=== PATIENT | female | born 1950 | race Caucasian/White ===

== ENCOUNTER → 2016-07-05 | Day surgery (SDC) | payer MEDICARE, MEDICAID ==
[~2016-07-05] VITALS: Ht 154.9 cm; Wt 57.2 kg
[~2016-07-05] MED LIST: DRON10CA MT; FENTANYL CITRATE/PF 50MCG/ML 2ML VIAL IV ONE; FENTANYL CITRATE/PF 50MCG/ML 2ML VIAL ONE; HYDROCODONE/ACETAMINOPHEN 5/325MG TABLET PO PRN; ITRACONAZOLE; LEVO25TA7 PO; LIDOCAINE HCL 1% 20ML VIAL (Pyxis) INJ ONE; OMEP20CA10 PO; PROG1 PO; SODIUM BICARBONATE 4.2% 5 MEQ/10 ML DISP.SYRIN IV ONE; ZINC SULFATE PO; nitrostat SL; tums
[2016-07-05 09:15] VITALS: BP 148/68
[2016-07-05 09:29] VITALS: BP 148/68
[2016-07-05 09:30] VITALS: BP 134/83
[2016-07-05 09:45] VITALS: BP 133/81
[2016-07-05 09:50] VITALS: BP_SYST 133; BP_SYST 148; BP_DIAS 68; BP_DIAS 81
[2016-07-05 10:00] VITALS: BP 141/80
[2016-07-05 13:28] LABS: HEMATOCRIT 42.7 % (36.0-48.0)
== END | disposition home or self-care (01) ==
LOC: OR 08:37
PROVIDERS: ATTEND Internal Medicine Nephrology
DX: N18.6 End stage renal disease (principal); R80.9 Proteinuria, unspecified; I12.0 Hypertensive chronic kidney disease with stage 5 chronic kidney disease or end stage renal disease; E11.22 Type 2 diabetes mellitus with diabetic chronic kidney disease; Z94.0 Kidney transplant status; M81.0 Age-related osteoporosis without current pathological fracture; E03.9 Hypothyroidism, unspecified; M32.9 Systemic lupus erythematosus, unspecified; E78.00 Pure hypercholesterolemia, unspecified; Z84.89 Family history of other specified conditions; Z82.49 Family history of ischemic heart disease and other diseases of the circulatory system
CPT/HCPCS: 36415; 50200; 76942; 85014; 85018; 88305; 88346; 88348; J3010; J3490

== ENCOUNTER 2018-04-27 10:37 | Inpatient (IN) | payer MEDICARE, MEDICAID ==
[~2018-04-27] VITALS: Ht 165.1 cm; Wt 64.0 kg
[~2018-04-27 10:37] MED LIST changes: -FENTANYL CITRATE/PF 50MCG/ML 2ML VIAL IV ONE; -FENTANYL CITRATE/PF 50MCG/ML 2ML VIAL ONE; -HYDROCODONE/ACETAMINOPHEN 5/325MG TABLET PO PRN; -LIDOCAINE HCL 1% 20ML VIAL (Pyxis) INJ ONE; -OMEP20CA10 PO; -SODIUM BICARBONATE 4.2% 5 MEQ/10 ML DISP.SYRIN IV ONE; -nitrostat SL
[2018-04-27] MEDS ORDERED: ONDANSETRON HCL 4MG/2ML INJ IV STA (12:01)
[2018-04-27 13:20] LABS: BASOPHILS % 0.2 % (0.0-2.0); EOSINOPHILS % 0.6 % (0.0-5.0); HEMATOCRIT. 23.2 % (36.0-48.0); HEMOGLOBIN. 7.6 g/dL (12.0-16.0); LYMPHOCYTES % 11.9 % (20.0-50.0); MEAN PLATELET VOLUME 8.5 fl (7.4-10.4); MONOCYTES % 3.8 % (2.0-8.0); NEUTROPHILS % 83.5 % (40.0-76.0); PLATELET 180 x1000/uL (130-400); RED BLOOD CELL COUNT 2.52 mill/uL (4.2-5.4); RED CELL DISTRIBUTION WIDTH 15.6 % (11.6-14.6)
[2018-04-27 13:25] LABS: CHLORIDE 107 mEq/L (98-107)
[2018-04-27] MEDS ORDERED: HYDROCODONE/ACETAMINOPHEN 5/325MG TABLET PO ONE (17:45)
[2018-04-27 18:38] LABS: CLARITY URINE CLEAR (CLEAR); COLOR URINE YELLOW (YELLOW); KETONES URINE NEGATIVE (NEGATIVE); LEUKOCYTE ESTERASE URINE NEGATIVE (NEGATIVE); NITRITE URINE NEGATIVE (NEGATIVE); OCCULT BLOOD URINE NEGATIVE (NEGATIVE); PH URINE 5.5 (4.5-8.0); PROTEIN URINE 3+ (NEGATIVE); SPECIFIC GRAVITY URINE 1.009 (1.005-1.030); UROBILINOGEN URINE 0.2 E.U./dL (0.2-1.0)
[2018-04-27] MEDS ORDERED: HYDROCODONE/ACETAMINOPHEN 5/325MG TABLET PO NR (19:00)
[2018-04-28 06:41] LABS: BASOPHILS % 0.4 % (0.0-2.0); EOSINOPHILS % 1.6 % (0.0-5.0); HEMATOCRIT. 22.3 % (36.0-48.0); HEMOGLOBIN. 7.2 g/dL (12.0-16.0); LYMPHOCYTES % 22.9 % (20.0-50.0); MEAN CORPUSCULAR HEMOGLOBIN 29.7 pg (28.0-32.0); MEAN CORPUSCULAR VOLUME 91.4 fL (81.0-99.0); MEAN PLATELET VOLUME 8.1 fl (7.4-10.4); MONOCYTES % 6.6 % (2.0-8.0); NEUTROPHILS % 68.5 % (40.0-76.0); PLATELET 174 x1000/uL (130-400); RED BLOOD CELL COUNT 2.43 mill/uL (4.2-5.4); RED CELL DISTRIBUTION WIDTH 15.7 % (11.6-14.6)
[2018-04-28 06:49] LABS: CHLORIDE 110 mEq/L (98-107)
[2018-04-28 06:57] LABS: PHOSPHORUS 3.3 mg/dL (2.5-4.9)
[2018-04-28] MEDS ORDERED: DEXTROSE 50% WATER 50ML SYRINGE IV PRN (10:30)
[2018-04-28] MEDS ORDERED: CALC-889 MT (10:37)
[2018-04-28] MEDS ORDERED: MYCO250C MT (10:37)
[2018-04-28] MEDS ORDERED: DILT300T10 MT (10:37)
[2018-04-28] MEDS ORDERED: TACR0.5C4 MT (10:37)
[2018-04-28] MEDS ORDERED: PANT40TA4 MT (10:46)
[2018-04-28] MEDS ORDERED: CALC0.253 MT (10:46)
[2018-04-28] MEDS ORDERED: SODI650T MT (10:46)
[2018-04-28] MEDS ORDERED: METO-385 MT (10:46)
[2018-04-28] MEDS ORDERED: FURO40TA5 MT (10:46)
[2018-04-28] MEDS ORDERED: LOSA50TA20 MT (10:46)
[2018-04-28] MEDS ORDERED: PRAV20TA57 MT (10:46)
[2018-04-28] MEDS ORDERED: FERR324T4 MT (10:46)
[2018-04-28] MEDS ORDERED: PRED5TAB MT (10:46)
[2018-04-28 12:00] VITALS: BP 136/54
[2018-04-28] MEDS: BLOOD SUGAR DIAGNOSTIC STRIP TEST SCH ×3 (12:20→21:13)
[2018-04-28] MEDS: INSULIN LISPRO 100 UNITS/ML SUBCUT SCH ×3 (12:50→22:37)
[2018-04-28] MEDS: TRAMADOL 50MG TABLET PO PRN ×2 (14:58→22:28)
[2018-04-28] MEDS: TACROLIMUS 1MG CAPSULE PO SCH (14:58)
[2018-04-28] MEDS: LEVOTHYROXINE SODIUM 25MCG TABLET PO SCH (14:58)
[2018-04-28] MEDS: PREDNISONE 5MG TABLET PO SCH (14:59)
[2018-04-28] MEDS: LOSARTAN POTASSIUM 50 MG TABLET PO SCH (14:59)
[2018-04-28] MEDS: ENOXAPARIN 30MG/0.3ML SYR SUBCUT SCH (15:00)
[2018-04-28 16:00] VITALS: BP 130/100
[2018-04-28 17:40] LABS: BASOPHILS % 0.3 % (0.0-2.0); EOSINOPHILS % 1.5 % (0.0-5.0); HEMATOCRIT. 22.7 % (36.0-48.0); HEMOGLOBIN. 7.4 g/dL (12.0-16.0); LYMPHOCYTES % 16.8 % (20.0-50.0); MEAN CORPUSCULAR HEMOGLOBIN 29.6 pg (28.0-32.0); MEAN CORPUSCULAR VOLUME 91.4 fL (81.0-99.0); MEAN PLATELET VOLUME 7.9 fl (7.4-10.4); MONOCYTES % 7.5 % (2.0-8.0); NEUTROPHILS % 73.9 % (40.0-76.0); PLATELET 174 x1000/uL (130-400); RED BLOOD CELL COUNT 2.48 mill/uL (4.2-5.4); RED CELL DISTRIBUTION WIDTH 15.4 % (11.6-14.6)
[2018-04-28] MEDS ORDERED: MAGNESIUM 2 G PREMIX 50 ML IV NR (18:00)
[2018-04-28 20:00] VITALS: BP 136/52
[2018-04-28] MEDS: MYCOPHENOLATE MOFETIL 250MG CAPSULE PO SCH (21:13)
[2018-04-28] MEDS: METOPROLOL TARTRATE 25MG TABLET PO SCH (21:13)
[2018-04-29] VITALS (28 sets, daily range): BP systolic 126–165; BP diastolic 49–75
[2018-04-29] MEDS: TRAMADOL 50MG TABLET PO PRN (06:28)
[2018-04-29] MEDS: LEVOTHYROXINE SODIUM 25MCG TABLET PO SCH (06:28)
[2018-04-29] MEDS: BLOOD SUGAR DIAGNOSTIC STRIP TEST SCH ×3 (06:36→18:02)
[2018-04-29 07:49] LABS: BASOPHILS % 0.1 % (0.0-2.0); EOSINOPHILS % 0.6 % (0.0-5.0); HEMATOCRIT. 23.7 % (36.0-48.0); HEMOGLOBIN. 7.6 g/dL (12.0-16.0); LYMPHOCYTES % 19.7 % (20.0-50.0); MEAN CORPUSCULAR HEMOGLOBIN 29.6 pg (28.0-32.0); MEAN CORPUSCULAR VOLUME 92.3 fL (81.0-99.0); MEAN PLATELET VOLUME 8.6 fl (7.4-10.4); MONOCYTES % 6.3 % (2.0-8.0); NEUTROPHILS % 73.3 % (40.0-76.0); PLATELET 180 x1000/uL (130-400); RED BLOOD CELL COUNT 2.57 mill/uL (4.2-5.4); RED CELL DISTRIBUTION WIDTH 15.4 % (11.6-14.6)
[2018-04-29] MEDS: INSULIN LISPRO 100 UNITS/ML SUBCUT SCH ×4 (07:50→21:26)
[2018-04-29 07:59] LABS: PHOSPHORUS 3.4 mg/dL (2.5-4.9)
[2018-04-29] MEDS ORDERED: ONDANSETRON HCL 4MG/2ML INJ IV PRN (08:45)
[2018-04-29] MEDS: METOPROLOL TARTRATE 25MG TABLET PO SCH ×2 (09:00→21:20)
[2018-04-29] MEDS: ENOXAPARIN 30MG/0.3ML SYR SUBCUT SCH (09:00)
[2018-04-29] MEDS: LOSARTAN POTASSIUM 50 MG TABLET PO SCH (09:00)
[2018-04-29] MEDS: TACROLIMUS 1MG CAPSULE PO SCH (10:08)
[2018-04-29] MEDS: MYCOPHENOLATE MOFETIL 250MG CAPSULE PO SCH ×2 (10:08→21:20)
[2018-04-29] MEDS: PREDNISONE 5MG TABLET PO SCH (10:09)
[2018-04-29] MEDS ORDERED: CLINDAMYCIN 600 MG in DEXTROSE 5% WATER 50 ML IV NR ×2 (13:15→16:00)
[2018-04-29] MEDS ORDERED: HEPARIN 1000 UNITS/ML 10ML ONE (14:42)
[2018-04-29] MEDS ORDERED: LIDOCAINE HCL 1% 20ML VIAL (Pyxis) INJ ONE ×2 (14:42→15:46)
[2018-04-29] MEDS ORDERED: SODIUM BICARBONATE 4% (2.4MEQ) 5ML VIAL IV ONE (14:42)
[2018-04-29] MEDS ORDERED: FENTANYL CITRATE/PF 50MCG/ML 2ML VIAL ONE (14:44)
[2018-04-29] MEDS ORDERED: ONDANSETRON HCL 4MG/2ML INJ ONE (15:03)
[2018-04-29] MEDS ORDERED: ONDANSETRON HCL 4MG/2ML INJ IV NR (15:15)
[2018-04-29] MEDS ORDERED: FENTANYL CITRATE/PF 50MCG/ML 2ML VIAL IV NR (15:15)
[2018-04-29] MEDS ORDERED: IOHEXOL-300 50 ML BOTTLE IV ONE (15:16)
[2018-04-29] MEDS ORDERED: FENTANYL CITRATE/PF 50MCG/ML 2ML VIAL IV ONE (15:45)
[2018-04-30] VITALS: BP 125/61
[2018-04-30 04:00] VITALS: BP 125/55
[2018-04-30] MEDS: LEVOTHYROXINE SODIUM 25MCG TABLET PO SCH (06:43)
[2018-04-30] MEDS: BLOOD SUGAR DIAGNOSTIC STRIP TEST SCH ×4 (06:44→21:02)
[2018-04-30] MEDS: INSULIN LISPRO 100 UNITS/ML SUBCUT SCH ×4 (06:44→22:04)
[2018-04-30 07:58] VITALS: BP 130/53
[2018-04-30] MEDS: LOSARTAN POTASSIUM 50 MG TABLET PO SCH ×2 (09:00→09:43)
[2018-04-30] MEDS: METOPROLOL TARTRATE 25MG TABLET PO SCH ×3 (09:00→21:02)
[2018-04-30] MEDS: ENOXAPARIN 30MG/0.3ML SYR SUBCUT SCH (09:42)
[2018-04-30] MEDS: TACROLIMUS 1MG CAPSULE PO SCH (09:42)
[2018-04-30] MEDS: PREDNISONE 5MG TABLET PO SCH (09:42)
[2018-04-30] MEDS: MYCOPHENOLATE MOFETIL 250MG CAPSULE PO SCH ×2 (09:42→21:02)
[2018-04-30 10:09] LABS: BASOPHILS % 0.4 % (0.0-2.0); HEMOGLOBIN. 8.1 g/dL (12.0-16.0); LYMPHOCYTES % 19.1 % (20.0-50.0); MEAN CORPUSCULAR HEMOGLOBIN 29.5 pg (28.0-32.0); MONOCYTES % 6.8 % (2.0-8.0); NEUTROPHILS % 71.7 % (40.0-76.0); PLATELET 197 x1000/uL (130-400); RED BLOOD CELL COUNT 2.75 mill/uL (4.2-5.4); RED CELL DISTRIBUTION WIDTH 15.3 % (11.6-14.6)
[2018-04-30 10:12] LABS: CHLORIDE 107 mEq/L (98-107)
[2018-04-30 10:18] LABS: PHOSPHORUS 2.8 mg/dL (2.5-4.9)
[2018-04-30 12:00] VITALS: BP 119/58
[2018-04-30] MEDS ORDERED: HEPARIN SODIUM 1,000 UNIT/1ML VIAL IV NR (12:45)
[2018-04-30 17:19] VITALS: BP 137/57
[2018-04-30] MEDS: TRAMADOL 50MG TABLET PO PRN (18:06)
[2018-04-30 20:00] VITALS: BP 126/60
[2018-04-30] MEDS: SILVER SULFADIAZINE 1% CREAM 25GM TOP SCH (21:03)
[2018-05-01] VITALS (17 sets, daily range): BP systolic 116–149; BP diastolic 49–67
[2018-05-01] MEDS: BLOOD SUGAR DIAGNOSTIC STRIP TEST SCH ×4 (06:32→20:24)
[2018-05-01] MEDS: LEVOTHYROXINE SODIUM 25MCG TABLET PO SCH (06:32)
[2018-05-01 07:10] LABS: BASOPHILS % 0.5 % (0.0-2.0); EOSINOPHILS % 2.1 % (0.0-5.0); HEMOGLOBIN. 7.3 g/dL (12.0-16.0); LYMPHOCYTES % 28.7 % (20.0-50.0); MEAN CORPUSCULAR HEMOGLOBIN 30.5 pg (28.0-32.0); MEAN CORPUSCULAR VOLUME 91.7 fL (81.0-99.0); MEAN PLATELET VOLUME 8.3 fl (7.4-10.4); MONOCYTES % 8.6 % (2.0-8.0); NEUTROPHILS % 60.1 % (40.0-76.0); PLATELET 177 x1000/uL (130-400); RED BLOOD CELL COUNT 2.38 mill/uL (4.2-5.4); RED CELL DISTRIBUTION WIDTH 15.3 % (11.6-14.6)
[2018-05-01 07:21] LABS: HEMATOCRIT. 21.8 % (36.0-48.0)
[2018-05-01 07:34] LABS: PHOSPHORUS 2.4 mg/dL (2.5-4.9)
[2018-05-01] MEDS: INSULIN LISPRO 100 UNITS/ML SUBCUT SCH ×4 (07:50→21:29)
[2018-05-01] MEDS: LOSARTAN POTASSIUM 50 MG TABLET PO SCH (09:00)
[2018-05-01] MEDS: METOPROLOL TARTRATE 25MG TABLET PO SCH ×2 (09:00→20:23)
[2018-05-01] MEDS: MYCOPHENOLATE MOFETIL 250MG CAPSULE PO SCH ×2 (09:27→20:23)
[2018-05-01] MEDS: SILVER SULFADIAZINE 1% CREAM 25GM TOP SCH ×2 (09:27→20:49)
[2018-05-01] MEDS: TACROLIMUS 1MG CAPSULE PO SCH (09:27)
[2018-05-01] MEDS: ENOXAPARIN 30MG/0.3ML SYR SUBCUT SCH (09:27)
[2018-05-01] MEDS: PREDNISONE 5MG TABLET PO SCH (09:37)
[2018-05-01] MEDS ORDERED: LIDOCAINE HCL 1% 20ML VIAL (Pyxis) INJ ONE (13:11)
[2018-05-01] MEDS ORDERED: SODIUM BICARBONATE 4% (2.4MEQ) 5ML VIAL IV ONE (13:11)
[2018-05-01] MEDS ORDERED: FENTANYL CITRATE/PF 50MCG/ML 2ML VIAL ONE (13:11)
[2018-05-01] MEDS ORDERED: IOHEXOL-300 100 ML BOTTLE ONE (13:19)
[2018-05-01] MEDS ORDERED: ONDANSETRON HCL 4MG/2ML INJ ONE (13:34)
[2018-05-01] MEDS ORDERED: ONDANSETRON HCL 4MG/2ML INJ IV NR (13:45)
[2018-05-01] MEDS ORDERED: FENTANYL CITRATE/PF 50MCG/ML 2ML VIAL IV ONE (14:00)
[2018-05-01] MEDS: TRAMADOL 50MG TABLET PO PRN (20:24)
[2018-05-02] VITALS: BP 123/58
[2018-05-02 04:00] VITALS: BP 126/56
[2018-05-02 06:21] LABS: BASOPHILS % 0.2 % (0.0-2.0); HEMATOCRIT. 22.3 % (36.0-48.0); HEMOGLOBIN. 7.2 g/dL (12.0-16.0); LYMPHOCYTES % 29.6 % (20.0-50.0); MEAN CORPUSCULAR HEMOGLOBIN 29.6 pg (28.0-32.0); MEAN CORPUSCULAR VOLUME 91.5 fL (81.0-99.0); MONOCYTES % 8.1 % (2.0-8.0); NEUTROPHILS % 60.1 % (40.0-76.0); PLATELET 203 x1000/uL (130-400); RED BLOOD CELL COUNT 2.44 mill/uL (4.2-5.4); RED CELL DISTRIBUTION WIDTH 15.1 % (11.6-14.6)
[2018-05-02] MEDS: LEVOTHYROXINE SODIUM 25MCG TABLET PO SCH (06:21)
[2018-05-02] MEDS: TRAMADOL 50MG TABLET PO PRN ×2 (06:21→16:05)
[2018-05-02] MEDS: BLOOD SUGAR DIAGNOSTIC STRIP TEST SCH ×2 (06:31→11:42)
[2018-05-02] MEDS: INSULIN LISPRO 100 UNITS/ML SUBCUT SCH ×2 (07:50→11:42)
[2018-05-02] MEDS: TACROLIMUS 1MG CAPSULE PO SCH (10:25)
[2018-05-02] MEDS: ENOXAPARIN 30MG/0.3ML SYR SUBCUT SCH (10:25)
[2018-05-02] MEDS: PREDNISONE 5MG TABLET PO SCH (10:25)
[2018-05-02] MEDS: SILVER SULFADIAZINE 1% CREAM 25GM TOP SCH (10:25)
[2018-05-02] MEDS: LOSARTAN POTASSIUM 50 MG TABLET PO SCH (10:25)
[2018-05-02] MEDS: METOPROLOL TARTRATE 25MG TABLET PO SCH (10:26)
[2018-05-02] MEDS: MYCOPHENOLATE MOFETIL 250MG CAPSULE PO SCH (10:27)
[2018-05-02 15:26] VITALS: BP 134/58
[2018-05-02 16:05] VITALS: BP 134/58
[2018-05-02] MEDS ORDERED: EPOETIN ALFA 4000UNITS/ML VIAL SUBCUT SCH (21:00)
== END 2018-05-02 16:30 | DRG 673 ==
LOC: ER 10:44 → 6EST 18:03 → EDBEDREQ 18:05 → ENRESERV 04-28 07:07 → ER 04-28 09:22 → 6EST 05-01 08:11
PROVIDERS: ADMIT Hospitalist; ATTEND Internal Medicine
PROC: 047D3ZZ Dilation of Left Common Iliac Artery, Percutaneous Approach (ICD-10-PCS; principal; 2018-04-29)
PROC: 047J3ZZ Dilation of Left External Iliac Artery, Percutaneous Approach (ICD-10-PCS; 2018-04-29)
PROC: 0JHM3XZ Insertion of Tunneled Vascular Access Device into Left Upper Leg Subcutaneous Tissue and Fascia, Percutaneous Approach (ICD-10-PCS; 2018-04-29)
PROC: 06H033Z Insertion of Infusion Device into Inferior Vena Cava, Percutaneous Approach (ICD-10-PCS; 2018-04-29)
PROC: B549ZZA Ultrasonography of Inferior Vena Cava, Guidance (ICD-10-PCS; 2018-04-29)
PROC: B5191ZA Fluoroscopy of Inferior Vena Cava using Low Osmolar Contrast, Guidance (ICD-10-PCS; 2018-04-29)
PROC: B548ZZA Ultrasonography of Superior Vena Cava, Guidance (ICD-10-PCS; 2018-04-29)
PROC: B51N1ZZ Fluoroscopy of Left Upper Extremity Veins using Low Osmolar Contrast (ICD-10-PCS; 2018-04-29)
PROC: 5A1D70Z Performance of Urinary Filtration, Intermittent, Less than 6 Hours Per Day (ICD-10-PCS; 2018-04-29)
PROC: 05JYXZZ Inspection of Upper Vein, External Approach (ICD-10-PCS; 2018-04-29)
PROC: 5A1D70Z Performance of Urinary Filtration, Intermittent, Less than 6 Hours Per Day (ICD-10-PCS; 2018-05-01)
PROC: B51W1ZZ Fluoroscopy of Dialysis Shunt/Fistula using Low Osmolar Contrast (ICD-10-PCS; 2018-05-01)
PROC: B51N1ZZ Fluoroscopy of Left Upper Extremity Veins using Low Osmolar Contrast (ICD-10-PCS; 2018-05-01)
PROC: B5171ZZ Fluoroscopy of Left Subclavian Vein using Low Osmolar Contrast (ICD-10-PCS; 2018-05-01)
DX: T86.12 Kidney transplant failure (principal); E43 Unspecified severe protein-calorie malnutrition; N18.6 End stage renal disease; S32.591A Other specified fracture of right pubis, initial encounter for closed fracture; N17.9 Acute kidney failure, unspecified; E87.1 Hypo-osmolality and hyponatremia; I12.0 Hypertensive chronic kidney disease with stage 5 chronic kidney disease or end stage renal disease; E11.22 Type 2 diabetes mellitus with diabetic chronic kidney disease; E03.9 Hypothyroidism, unspecified; D63.1 Anemia in chronic kidney disease; E78.00 Pure hypercholesterolemia, unspecified; E83.51 Hypocalcemia; E87.5 Hyperkalemia; M32.9 Systemic lupus erythematosus, unspecified; W01.0XXA Fall on same level from slipping, tripping and stumbling without subsequent striking against object, initial encounter; Z79.4 Long term (current) use of insulin; Z88.0 Allergy status to penicillin; Z88.5 Allergy status to narcotic agent; Z88.8 Allergy status to other drugs, medicaments and biological substances; Z82.61 Family history of arthritis; Z82.49 Family history of ischemic heart disease and other diseases of the circulatory system; Z84.89 Family history of other specified conditions; Y92.091 Bathroom in other non-institutional residence as the place of occurrence of the external cause; Y93.89 Activity, other specified; Y99.8 Other external cause status; Z68.23 Body mass index [BMI] 23.0-23.9, adult
CPT/HCPCS: 36415; 36558; 36569; 36901; 37248; 72192; 73502; 73552; 73560; 73590; 73700; 75825; 75827; 76937; 77001; 80048; 80197; 82962; 83735; 84100; 85651; 93970; 96374; 97162; 97166; 97530; 99152; 99153; 99285; C1725; C1750; C1766; C1769; C1887; J0885; J1644; J1650; J1815; J2405; J3010; J3475; J3490; J7050; J7060; J7507; J7512; J7517; Q9967; G0500

== ENCOUNTER 2018-05-02 16:56 | Inpatient (IN) | payer MEDICARE, MEDICAID ==
[~2018-05-02] VITALS: Ht 165.1 cm; Wt 61.7 kg
[2018-05-02 16:50] VITALS: BP 137/55
[~2018-05-02 16:56] MED LIST changes: +CALC-889 MT; +CALC0.253 MT; +DILT300T10 MT; +FERR324T4 MT; +FURO40TA5 MT; +LOSA50TA20 MT; +METO-385 MT; +MYCO250C MT; +PANT40TA4 MT; +PRAV20TA57 MT; +PRED5TAB MT; +SODI650T MT; +TACR0.5C4 MT
[2018-05-02 17:00] VITALS: BP 137/55
[2018-05-02] MEDS ORDERED: ONDANSETRON HCL 4MG/2ML INJ IV PRN (18:00)
[2018-05-02] MEDS ORDERED: DEXTROSE 50% WATER 50ML SYRINGE IV PRN (18:00)
[2018-05-02 20:00] VITALS: BP 132/44
[2018-05-02] MEDS ORDERED: EPOETIN ALFA 4000UNITS/ML VIAL SUBCUT SCH (21:00)
[2018-05-02] MEDS: BLOOD SUGAR DIAGNOSTIC STRIP TEST SCH (21:44)
[2018-05-02] MEDS: MYCOPHENOLATE MOFETIL 250MG CAPSULE PO SCH (22:09)
[2018-05-02] MEDS: METOPROLOL TARTRATE 25MG TABLET PO SCH (22:10)
[2018-05-02] MEDS: INSULIN LISPRO 100 UNITS/ML SUBCUT SCH (22:13)
[2018-05-02] MEDS: SILVER SULFADIAZINE 1% CREAM 25GM TOP SCH (23:24)
[2018-05-03] MEDS: TRAMADOL 50MG TABLET PO PRN (04:50)
[2018-05-03] MEDS: LEVOTHYROXINE SODIUM 25MCG TABLET PO SCH (06:05)
[2018-05-03] MEDS: BLOOD SUGAR DIAGNOSTIC STRIP TEST SCH ×4 (06:05→21:03)
[2018-05-03] MEDS: INSULIN LISPRO 100 UNITS/ML SUBCUT SCH ×4 (06:26→22:03)
[2018-05-03 08:00] VITALS: BP 138/69
[2018-05-03] MEDS: MYCOPHENOLATE MOFETIL 250MG CAPSULE PO SCH ×2 (09:52→20:58)
[2018-05-03] MEDS: TACROLIMUS 1MG CAPSULE PO SCH (09:52)
[2018-05-03] MEDS: METOPROLOL TARTRATE 25MG TABLET PO SCH ×2 (09:52→20:58)
[2018-05-03] MEDS: PREDNISONE 5MG TABLET PO SCH (09:52)
[2018-05-03] MEDS: ENOXAPARIN 30MG/0.3ML SYR SUBCUT SCH (09:53)
[2018-05-03] MEDS: LOSARTAN POTASSIUM 50 MG TABLET PO SCH (09:53)
[2018-05-03] MEDS: SILVER SULFADIAZINE 1% CREAM 25GM TOP SCH ×2 (10:20→20:58)
[2018-05-03 20:00] VITALS: BP 128/62
[2018-05-04] MEDS: BLOOD SUGAR DIAGNOSTIC STRIP TEST SCH ×4 (06:13→21:05)
[2018-05-04] MEDS: INSULIN LISPRO 100 UNITS/ML SUBCUT SCH ×4 (06:13→21:05)
[2018-05-04] MEDS: LEVOTHYROXINE SODIUM 25MCG TABLET PO SCH (06:13)
[2018-05-04 08:02] VITALS: BP 140/53
[2018-05-04] MEDS: TRAMADOL 50MG TABLET PO PRN (08:54)
[2018-05-04] MEDS: MYCOPHENOLATE MOFETIL 250MG CAPSULE PO SCH ×2 (09:59→21:05)
[2018-05-04] MEDS: ENOXAPARIN 30MG/0.3ML SYR SUBCUT SCH (09:59)
[2018-05-04] MEDS: PREDNISONE 5MG TABLET PO SCH (09:59)
[2018-05-04] MEDS: LOSARTAN POTASSIUM 50 MG TABLET PO SCH (09:59)
[2018-05-04] MEDS: TACROLIMUS 1MG CAPSULE PO SCH (09:59)
[2018-05-04] MEDS: METOPROLOL TARTRATE 25MG TABLET PO SCH ×2 (10:00→21:05)
[2018-05-04] MEDS: SILVER SULFADIAZINE 1% CREAM 25GM TOP SCH ×2 (10:04→21:06)
[2018-05-04] MEDS ORDERED: NON FORMULARY PATIENT HOME MED XX SCH (10:30)
[2018-05-04] MEDS: RESTASIS 0.05% EYE EMULSION EACHEYE SCH ×2 (13:11→20:59)
[2018-05-04] MEDS: HYDROCODONE/ACETAMINOPHEN 10/325MG TABLET PO PRN (13:58)
[2018-05-04 20:00] VITALS: BP 135/48
[2018-05-05] MEDS: BLOOD SUGAR DIAGNOSTIC STRIP TEST SCH ×4 (06:13→21:24)
[2018-05-05] MEDS: LEVOTHYROXINE SODIUM 25MCG TABLET PO SCH (06:13)
[2018-05-05 07:10] LABS: BASOPHILS % 0.2 % (0.0-2.0); EOSINOPHILS % 1.4 % (0.0-5.0); HEMATOCRIT. 21.6 % (36.0-48.0); LYMPHOCYTES % 17.5 % (20.0-50.0); MEAN CORPUSCULAR HEMOGLOBIN 29.2 pg (28.0-32.0); MEAN CORPUSCULAR VOLUME 91.5 fL (81.0-99.0); MEAN PLATELET VOLUME 8.1 fl (7.4-10.4); MONOCYTES % 6.6 % (2.0-8.0); NEUTROPHILS % 74.3 % (40.0-76.0); PLATELET 260 x1000/uL (130-400); RED BLOOD CELL COUNT 2.36 mill/uL (4.2-5.4); RED CELL DISTRIBUTION WIDTH 15.2 % (11.6-14.6)
[2018-05-05 07:34] LABS: HEMOGLOBIN. 6.9 g/dL (12.0-16.0)
[2018-05-05 07:38] LABS: PHOSPHORUS 3.4 mg/dL (2.5-4.9)
[2018-05-05 08:00] VITALS: BP 132/56
[2018-05-05] MEDS ORDERED: ACETAMINOPHEN 650MG SUPP PR NR (08:00)
[2018-05-05] MEDS: HYDROCODONE/ACETAMINOPHEN 10/325MG TABLET PO PRN (08:42)
[2018-05-05] MEDS: METOPROLOL TARTRATE 25MG TABLET PO SCH ×2 (09:00→21:00)
[2018-05-05] MEDS: INSULIN LISPRO 100 UNITS/ML SUBCUT SCH ×4 (09:00→21:35)
[2018-05-05] MEDS: LOSARTAN POTASSIUM 50 MG TABLET PO SCH (09:00)
[2018-05-05] MEDS: TACROLIMUS 1MG CAPSULE PO SCH (09:11)
[2018-05-05] MEDS: PREDNISONE 5MG TABLET PO SCH (09:11)
[2018-05-05] MEDS: RESTASIS 0.05% EYE EMULSION EACHEYE SCH ×2 (09:11→21:26)
[2018-05-05] MEDS: MYCOPHENOLATE MOFETIL 250MG CAPSULE PO SCH (09:11)
[2018-05-05] MEDS: ENOXAPARIN 30MG/0.3ML SYR SUBCUT SCH (09:11)
[2018-05-05] MEDS: SILVER SULFADIAZINE 1% CREAM 25GM TOP SCH (09:12)
[2018-05-05] MEDS: ONDANSETRON 4MG ODT PO PRN (19:13)
[2018-05-05 20:00] VITALS: BP 132/54
[2018-05-05] MEDS ORDERED: EPOETIN ALFA 10000UNITS/ML VIAL SUBCUT SCH (21:00)
[2018-05-05 22:42] VITALS: BP 139/54
[2018-05-05 22:57] VITALS: BP 126/51
[2018-05-05 23:20] VITALS: BP 113/54
[2018-05-06 00:15] VITALS: BP 138/45
[2018-05-06] MEDS: MYCOPHENOLATE MOFETIL 250MG CAPSULE PO SCH ×3 (02:48→20:45)
[2018-05-06] MEDS: SILVER SULFADIAZINE 1% CREAM 25GM TOP SCH ×3 (02:49→20:45)
[2018-05-06 03:56] LABS: BASOPHILS % 0.4 % (0.0-2.0); EOSINOPHILS % 1.3 % (0.0-5.0); HEMATOCRIT. 26.5 % (36.0-48.0); HEMOGLOBIN. 8.7 g/dL (12.0-16.0); LYMPHOCYTES % 17.5 % (20.0-50.0); MEAN CORPUSCULAR HEMOGLOBIN 29.7 pg (28.0-32.0); MEAN CORPUSCULAR VOLUME 90.5 fL (81.0-99.0); MEAN PLATELET VOLUME 7.7 fl (7.4-10.4); MONOCYTES % 8.7 % (2.0-8.0); NEUTROPHILS % 72.1 % (40.0-76.0); PLATELET 233 x1000/uL (130-400); RED BLOOD CELL COUNT 2.93 mill/uL (4.2-5.4)
[2018-05-06 04:01] LABS: PHOSPHORUS 2.5 mg/dL (2.5-4.9)
[2018-05-06] MEDS: BLOOD SUGAR DIAGNOSTIC STRIP TEST SCH ×4 (05:56→21:19)
[2018-05-06] MEDS: INSULIN LISPRO 100 UNITS/ML SUBCUT SCH ×3 (06:02→21:29)
[2018-05-06] MEDS: LEVOTHYROXINE SODIUM 25MCG TABLET PO SCH (06:06)
[2018-05-06] MEDS: HYDROCODONE/ACETAMINOPHEN 10/325MG TABLET PO PRN (06:15)
[2018-05-06 08:27] VITALS: BP 125/55
[2018-05-06] MEDS: RESTASIS 0.05% EYE EMULSION EACHEYE SCH ×2 (08:47→20:46)
[2018-05-06] MEDS: PREDNISONE 5MG TABLET PO SCH (08:48)
[2018-05-06] MEDS: TACROLIMUS 1MG CAPSULE PO SCH (08:48)
[2018-05-06] MEDS: ENOXAPARIN 30MG/0.3ML SYR SUBCUT SCH (08:48)
[2018-05-06] MEDS: LOSARTAN POTASSIUM 50 MG TABLET PO SCH (08:48)
[2018-05-06] MEDS: METOPROLOL TARTRATE 25MG TABLET PO SCH ×2 (09:00→20:45)
[2018-05-06] MEDS: ONDANSETRON 4MG ODT PO PRN (10:14)
[2018-05-06] MEDS: LACTULOSE 20G/30ML UDC PO PRN (12:31)
[2018-05-06] MEDS: METOCLOPRAMIDE HCL 5MG TABLET PO SCH ×2 (12:31→17:00)
[2018-05-06 20:00] VITALS: BP 140/62
[2018-05-06] MEDS: TRAMADOL 50MG TABLET PO PRN (20:46)
[2018-05-07] MEDS: TRAMADOL 50MG TABLET PO PRN ×2 (03:56→14:24)
[2018-05-07] MEDS: METOCLOPRAMIDE HCL 5MG TABLET PO SCH ×3 (06:18→17:27)
[2018-05-07] MEDS: LEVOTHYROXINE SODIUM 25MCG TABLET PO SCH (06:18)
[2018-05-07] MEDS: BLOOD SUGAR DIAGNOSTIC STRIP TEST SCH ×4 (06:18→20:40)
[2018-05-07] MEDS: INSULIN LISPRO 100 UNITS/ML SUBCUT SCH ×4 (06:19→20:40)
[2018-05-07 07:04] LABS: HEMATOCRIT. 24.2 % (36.0-48.0); HEMOGLOBIN. 7.9 g/dL (12.0-16.0); MEAN CORPUSCULAR HEMOGLOBIN 29.4 pg (28.0-32.0); MEAN CORPUSCULAR VOLUME 90.6 fL (81.0-99.0); MEAN PLATELET VOLUME 7.8 fl (7.4-10.4); PLATELET 253 x1000/uL (130-400); RED BLOOD CELL COUNT 2.68 mill/uL (4.2-5.4); RED CELL DISTRIBUTION WIDTH 15.3 % (11.6-14.6)
[2018-05-07 07:40] LABS: PHOSPHORUS 2.5 mg/dL (2.5-4.9)
[2018-05-07 08:09] VITALS: BP 132/58
[2018-05-07] MEDS: METOPROLOL TARTRATE 25MG TABLET PO SCH ×2 (09:00→21:00)
[2018-05-07] MEDS: LOSARTAN POTASSIUM 50 MG TABLET PO SCH (09:00)
[2018-05-07 09:46] LABS: PLATELET ESTIMATE NORMAL
[2018-05-07] MEDS: TACROLIMUS 1MG CAPSULE PO SCH (10:11)
[2018-05-07] MEDS: MYCOPHENOLATE MOFETIL 250MG CAPSULE PO SCH ×2 (10:11→23:23)
[2018-05-07] MEDS: PREDNISONE 5MG TABLET PO SCH (10:11)
[2018-05-07] MEDS: ENOXAPARIN 30MG/0.3ML SYR SUBCUT SCH (10:11)
[2018-05-07] MEDS: SILVER SULFADIAZINE 1% CREAM 25GM TOP SCH ×2 (10:12→20:35)
[2018-05-07] MEDS: RESTASIS 0.05% EYE EMULSION EACHEYE SCH ×2 (10:12→20:35)
[2018-05-07] MEDS ORDERED: TRAMADOL 50MG TABLET PO PRN (17:30)
[2018-05-07 20:00] VITALS: BP 126/44
[2018-05-07] MEDS: PANTOPRAZOLE 40MG DR TABLET PO SCH (23:23)
[2018-05-07] MEDS: EPOETIN ALFA 10000UNITS/ML VIAL SUBCUT SCH (23:23)
[2018-05-08] MEDS: TRAMADOL 50MG TABLET PO PRN ×2 (05:32→13:56)
[2018-05-08] MEDS: BLOOD SUGAR DIAGNOSTIC STRIP TEST SCH ×4 (06:28→21:13)
[2018-05-08] MEDS: LEVOTHYROXINE SODIUM 25MCG TABLET PO SCH (06:28)
[2018-05-08] MEDS: ITRACONAZOLE 100MG CAPSULE PO SCH (06:29)
[2018-05-08] MEDS: METOCLOPRAMIDE HCL 5MG TABLET PO SCH ×3 (06:29→16:42)
[2018-05-08] MEDS: INSULIN LISPRO 100 UNITS/ML SUBCUT SCH ×4 (06:29→21:28)
[2018-05-08 07:51] LABS: HEMATOCRIT. 24.5 % (36.0-48.0); HEMOGLOBIN. 8.1 g/dL (12.0-16.0); MEAN CORPUSCULAR HEMOGLOBIN 30.2 pg (28.0-32.0); MEAN PLATELET VOLUME 7.7 fl (7.4-10.4); PLATELET 241 x1000/uL (130-400); RED CELL DISTRIBUTION WIDTH 15.2 % (11.6-14.6)
[2018-05-08 08:00] VITALS: BP 125/48
[2018-05-08 08:28] LABS: PHOSPHORUS 2.4 mg/dL (2.5-4.9)
[2018-05-08] MEDS: METOPROLOL TARTRATE 25MG TABLET PO SCH ×2 (09:00→21:12)
[2018-05-08] MEDS: MYCOPHENOLATE MOFETIL 250MG CAPSULE PO SCH ×2 (10:07→21:12)
[2018-05-08] MEDS: LOSARTAN POTASSIUM 50 MG TABLET PO SCH (10:07)
[2018-05-08] MEDS: TACROLIMUS 1MG CAPSULE PO SCH (10:07)
[2018-05-08] MEDS: PANTOPRAZOLE 40MG DR TABLET PO SCH ×2 (10:07→21:12)
[2018-05-08] MEDS: PREDNISONE 5MG TABLET PO SCH (10:07)
[2018-05-08] MEDS: SILVER SULFADIAZINE 1% CREAM 25GM TOP SCH ×2 (10:08→21:14)
[2018-05-08] MEDS: ENOXAPARIN 30MG/0.3ML SYR SUBCUT SCH (10:08)
[2018-05-08] MEDS: RESTASIS 0.05% EYE EMULSION EACHEYE SCH ×2 (10:08→21:15)
[2018-05-08 11:02] LABS: PLATELET ESTIMATE NORMAL
[2018-05-08] MEDS: LACTULOSE 20G/30ML UDC PO PRN (12:25)
[2018-05-08] MEDS: LACTULOSE 20G/30ML UDC PO SCH ×3 (13:30→21:00)
[2018-05-08] MEDS: DOCUSATE SODIUM 100MG CAPSULE PO SCH (16:42)
[2018-05-08 20:00] VITALS: BP 129/51
[2018-05-08] MEDS: POLYETHYLENE GLYCOL 3350 (17GM) 1 DOSE PACK PO SCH (21:00)
[2018-05-09] MEDS: BLOOD SUGAR DIAGNOSTIC STRIP TEST SCH ×4 (05:53→21:00)
[2018-05-09] MEDS: INSULIN LISPRO 100 UNITS/ML SUBCUT SCH ×4 (06:14→21:00)
[2018-05-09] MEDS: METOCLOPRAMIDE HCL 5MG TABLET PO SCH ×3 (06:15→18:20)
[2018-05-09] MEDS: LEVOTHYROXINE SODIUM 25MCG TABLET PO SCH (06:15)
[2018-05-09] MEDS: ITRACONAZOLE 100MG CAPSULE PO SCH (06:15)
[2018-05-09 06:54] LABS: BASOPHILS % 0.5 % (0.0-2.0); EOSINOPHILS % 3.3 % (0.0-5.0); HEMOGLOBIN. 7.9 g/dL (12.0-16.0); LYMPHOCYTES % 32.1 % (20.0-50.0); MEAN CORPUSCULAR HEMOGLOBIN 29.8 pg (28.0-32.0); MEAN CORPUSCULAR VOLUME 90.9 fL (81.0-99.0); MONOCYTES % 14.8 % (2.0-8.0); NEUTROPHILS % 49.3 % (40.0-76.0); PLATELET 252 x1000/uL (130-400); RED BLOOD CELL COUNT 2.64 mill/uL (4.2-5.4); RED CELL DISTRIBUTION WIDTH 15.5 % (11.6-14.6)
[2018-05-09 08:38] VITALS: BP 129/49
[2018-05-09] MEDS: MYCOPHENOLATE MOFETIL 250MG CAPSULE PO SCH ×2 (10:26→23:24)
[2018-05-09] MEDS: PANTOPRAZOLE 40MG DR TABLET PO SCH (10:26)
[2018-05-09] MEDS: DOCUSATE SODIUM 100MG CAPSULE PO SCH ×2 (10:26→18:20)
[2018-05-09] MEDS: TACROLIMUS 1MG CAPSULE PO SCH (10:26)
[2018-05-09] MEDS: LOSARTAN POTASSIUM 50 MG TABLET PO SCH (10:26)
[2018-05-09] MEDS: PREDNISONE 5MG TABLET PO SCH (10:26)
[2018-05-09] MEDS: METOPROLOL TARTRATE 25MG TABLET PO SCH ×2 (10:29→23:24)
[2018-05-09] MEDS: ENOXAPARIN 30MG/0.3ML SYR SUBCUT SCH (10:30)
[2018-05-09] MEDS: SILVER SULFADIAZINE 1% CREAM 25GM TOP SCH ×2 (10:30→23:26)
[2018-05-09] MEDS: RESTASIS 0.05% EYE EMULSION EACHEYE SCH ×2 (10:31→23:23)
[2018-05-09 20:00] VITALS: BP 123/43
[2018-05-09] MEDS: FAMOTIDINE 20MG TABLET PO SCH (23:24)
[2018-05-09] MEDS: EPOETIN ALFA 10000UNITS/ML VIAL SUBCUT SCH (23:25)
[2018-05-09] MEDS: POLYETHYLENE GLYCOL 3350 (17GM) 1 DOSE PACK PO SCH (23:25)
[2018-05-10] MEDS: TRAMADOL 50MG TABLET PO PRN (02:30)
[2018-05-10] MEDS: BLOOD SUGAR DIAGNOSTIC STRIP TEST SCH ×4 (05:39→21:49)
[2018-05-10] MEDS: INSULIN LISPRO 100 UNITS/ML SUBCUT SCH ×4 (05:39→21:49)
[2018-05-10] MEDS: METOCLOPRAMIDE HCL 5MG TABLET PO SCH ×3 (06:51→17:23)
[2018-05-10] MEDS: LEVOTHYROXINE SODIUM 25MCG TABLET PO SCH (06:51)
[2018-05-10] MEDS: ITRACONAZOLE 100MG CAPSULE PO SCH (06:51)
[2018-05-10 07:19] LABS: HEMATOCRIT. 25.4 % (36.0-48.0); HEMOGLOBIN. 8.4 g/dL (12.0-16.0); MEAN CORPUSCULAR HEMOGLOBIN 30.2 pg (28.0-32.0); MEAN CORPUSCULAR VOLUME 91.6 fL (81.0-99.0); PLATELET 228 x1000/uL (130-400); RED BLOOD CELL COUNT 2.77 mill/uL (4.2-5.4); RED CELL DISTRIBUTION WIDTH 15.4 % (11.6-14.6)
[2018-05-10 07:30] VITALS: BP 135/51
[2018-05-10 07:40] LABS: CHLORIDE 101 mEq/L (98-107)
[2018-05-10 07:48] LABS: PHOSPHORUS 2.4 mg/dL (2.5-4.9)
[2018-05-10] MEDS: TACROLIMUS 1MG CAPSULE PO SCH (08:33)
[2018-05-10] MEDS: RESTASIS 0.05% EYE EMULSION EACHEYE SCH ×2 (08:33→21:48)
[2018-05-10] MEDS: PREDNISONE 5MG TABLET PO SCH (08:33)
[2018-05-10] MEDS: LOSARTAN POTASSIUM 50 MG TABLET PO SCH (08:33)
[2018-05-10] MEDS: METOPROLOL TARTRATE 25MG TABLET PO SCH ×2 (08:33→21:49)
[2018-05-10] MEDS: DOCUSATE SODIUM 100MG CAPSULE PO SCH ×2 (08:33→17:23)
[2018-05-10] MEDS: MYCOPHENOLATE MOFETIL 250MG CAPSULE PO SCH ×2 (08:33→21:48)
[2018-05-10] MEDS: SILVER SULFADIAZINE 1% CREAM 25GM TOP SCH ×2 (08:34→21:51)
[2018-05-10] MEDS: ENOXAPARIN 30MG/0.3ML SYR SUBCUT SCH (08:34)
[2018-05-10] MEDS ORDERED: HYDROCODONE/ACETAMINOPHEN 10/325MG TABLET PO PRN (13:00)
[2018-05-10 13:49] LABS: PLATELET ESTIMATE NORMAL
[2018-05-10 20:00] VITALS: BP 124/56
[2018-05-10] MEDS: FAMOTIDINE 20MG TABLET PO SCH (21:48)
[2018-05-10] MEDS: POLYETHYLENE GLYCOL 3350 (17GM) 1 DOSE PACK PO SCH (21:49)
[2018-05-11] MEDS: METOCLOPRAMIDE HCL 5MG TABLET PO SCH ×3 (06:11→17:50)
[2018-05-11] MEDS: LEVOTHYROXINE SODIUM 25MCG TABLET PO SCH (06:11)
[2018-05-11] MEDS: ITRACONAZOLE 100MG CAPSULE PO SCH (06:11)
[2018-05-11] MEDS: BLOOD SUGAR DIAGNOSTIC STRIP TEST SCH ×4 (07:11→21:22)
[2018-05-11 07:55] LABS: BASOPHILS % 0.4 % (0.0-2.0); EOSINOPHILS % 2.3 % (0.0-5.0); HEMATOCRIT. 26.4 % (36.0-48.0); HEMOGLOBIN. 8.6 g/dL (12.0-16.0); LYMPHOCYTES % 24.4 % (20.0-50.0); MEAN CORPUSCULAR VOLUME 92.3 fL (81.0-99.0); MEAN PLATELET VOLUME 7.9 fl (7.4-10.4); MONOCYTES % 12.7 % (2.0-8.0); NEUTROPHILS % 60.2 % (40.0-76.0); PLATELET 251 x1000/uL (130-400); RED BLOOD CELL COUNT 2.85 mill/uL (4.2-5.4); RED CELL DISTRIBUTION WIDTH 15.8 % (11.6-14.6)
[2018-05-11 08:00] VITALS: BP 138/57
[2018-05-11] MEDS: INSULIN LISPRO 100 UNITS/ML SUBCUT SCH ×4 (09:00→21:49)
[2018-05-11] MEDS: PREDNISONE 5MG TABLET PO SCH (09:19)
[2018-05-11] MEDS: TACROLIMUS 1MG CAPSULE PO SCH (09:19)
[2018-05-11] MEDS: MYCOPHENOLATE MOFETIL 250MG CAPSULE PO SCH ×2 (09:19→21:22)
[2018-05-11] MEDS: LOSARTAN POTASSIUM 50 MG TABLET PO SCH (09:19)
[2018-05-11] MEDS: METOPROLOL TARTRATE 25MG TABLET PO SCH ×2 (09:20→21:22)
[2018-05-11] MEDS: ENOXAPARIN 30MG/0.3ML SYR SUBCUT SCH (09:20)
[2018-05-11] MEDS: DOCUSATE SODIUM 100MG CAPSULE PO SCH ×2 (09:20→17:50)
[2018-05-11] MEDS: SILVER SULFADIAZINE 1% CREAM 25GM TOP SCH ×2 (09:21→21:22)
[2018-05-11] MEDS: RESTASIS 0.05% EYE EMULSION EACHEYE SCH ×2 (09:21→21:22)
[2018-05-11] MEDS: TRAMADOL 50MG TABLET PO PRN (09:39)
[2018-05-11 20:00] VITALS: BP 156/60
[2018-05-11] MEDS: POLYETHYLENE GLYCOL 3350 (17GM) 1 DOSE PACK PO SCH (21:00)
[2018-05-11] MEDS: FAMOTIDINE 20MG TABLET PO SCH (21:22)
[2018-05-12] MEDS: BLOOD SUGAR DIAGNOSTIC STRIP TEST SCH ×4 (06:38→21:13)
[2018-05-12] MEDS: METOCLOPRAMIDE HCL 5MG TABLET PO SCH ×3 (06:38→17:24)
[2018-05-12] MEDS: LEVOTHYROXINE SODIUM 25MCG TABLET PO SCH (06:38)
[2018-05-12] MEDS: ITRACONAZOLE 100MG CAPSULE PO SCH (06:38)
[2018-05-12] MEDS: INSULIN LISPRO 100 UNITS/ML SUBCUT SCH ×4 (06:40→21:33)
[2018-05-12 07:09] LABS: BASOPHILS % 0.5 % (0.0-2.0); HEMATOCRIT. 24.8 % (36.0-48.0); HEMOGLOBIN. 7.9 g/dL (12.0-16.0); LYMPHOCYTES % 30.9 % (20.0-50.0); MEAN CORPUSCULAR HEMOGLOBIN 29.2 pg (28.0-32.0); MEAN CORPUSCULAR VOLUME 91.8 fL (81.0-99.0); MONOCYTES % 13.9 % (2.0-8.0); NEUTROPHILS % 51.7 % (40.0-76.0); PLATELET 256 x1000/uL (130-400); RED CELL DISTRIBUTION WIDTH 15.7 % (11.6-14.6)
[2018-05-12 07:54] LABS: PHOSPHORUS 3.4 mg/dL (2.5-4.9)
[2018-05-12 08:00] VITALS: BP 135/50
[2018-05-12] MEDS: LOSARTAN POTASSIUM 50 MG TABLET PO SCH (09:00)
[2018-05-12] MEDS: METOPROLOL TARTRATE 25MG TABLET PO SCH ×2 (09:00→21:00)
[2018-05-12] MEDS: TRAMADOL 50MG TABLET PO PRN (09:16)
[2018-05-12] MEDS: TACROLIMUS 1MG CAPSULE PO SCH (09:52)
[2018-05-12] MEDS: DOCUSATE SODIUM 100MG CAPSULE PO SCH ×2 (09:52→17:25)
[2018-05-12] MEDS: MYCOPHENOLATE MOFETIL 250MG CAPSULE PO SCH (09:52)
[2018-05-12] MEDS: PREDNISONE 5MG TABLET PO SCH (09:52)
[2018-05-12] MEDS: RESTASIS 0.05% EYE EMULSION EACHEYE SCH ×2 (09:53→21:10)
[2018-05-12] MEDS: SILVER SULFADIAZINE 1% CREAM 25GM TOP SCH ×2 (09:53→21:10)
[2018-05-12] MEDS: ENOXAPARIN 30MG/0.3ML SYR SUBCUT SCH (09:53)
[2018-05-12] MEDS ORDERED: TRAMADOL 50MG TABLET PO PRN (12:56)
[2018-05-12 20:00] VITALS: BP 136/61
[2018-05-12] MEDS ORDERED: EPOETIN ALFA 10000UNITS/ML VIAL SUBCUT SCH ×2 (21:00→21:30)
[2018-05-13] MEDS: POLYETHYLENE GLYCOL 3350 (17GM) 1 DOSE PACK PO SCH ×2 (01:14→20:54)
[2018-05-13] MEDS: MYCOPHENOLATE MOFETIL 250MG CAPSULE PO SCH ×3 (01:14→20:55)
[2018-05-13] MEDS: FAMOTIDINE 20MG TABLET PO SCH ×2 (01:18→20:55)
[2018-05-13] MEDS: BLOOD SUGAR DIAGNOSTIC STRIP TEST SCH ×4 (05:59→21:11)
[2018-05-13] MEDS: INSULIN LISPRO 100 UNITS/ML SUBCUT SCH ×4 (05:59→21:22)
[2018-05-13] MEDS: ITRACONAZOLE 100MG CAPSULE PO SCH (06:01)
[2018-05-13] MEDS: LEVOTHYROXINE SODIUM 25MCG TABLET PO SCH (06:01)
[2018-05-13] MEDS: METOCLOPRAMIDE HCL 5MG TABLET PO SCH ×3 (06:01→16:55)
[2018-05-13] MEDS: TRAMADOL 50MG TABLET PO PRN (06:45)
[2018-05-13 08:00] VITALS: BP 129/58
[2018-05-13] MEDS: LOSARTAN POTASSIUM 50 MG TABLET PO SCH (09:00)
[2018-05-13] MEDS: METOPROLOL TARTRATE 25MG TABLET PO SCH ×2 (09:00→20:55)
[2018-05-13] MEDS: SILVER SULFADIAZINE 1% CREAM 25GM TOP SCH ×2 (09:03→20:54)
[2018-05-13] MEDS: RESTASIS 0.05% EYE EMULSION EACHEYE SCH ×2 (09:03→20:54)
[2018-05-13] MEDS: DOCUSATE SODIUM 100MG CAPSULE PO SCH ×2 (09:03→16:55)
[2018-05-13] MEDS: PREDNISONE 5MG TABLET PO SCH (09:04)
[2018-05-13] MEDS: TACROLIMUS 1MG CAPSULE PO SCH (09:04)
[2018-05-13] MEDS: ENOXAPARIN 30MG/0.3ML SYR SUBCUT SCH (09:05)
[2018-05-13 11:55] LABS: MEAN CORPUSCULAR VOLUME 93.3 fL (81.0-99.0); PLATELET 287 x1000/uL (130-400)
[2018-05-13 20:00] VITALS: BP 135/54
[2018-05-14] MEDS: ITRACONAZOLE 100MG CAPSULE PO SCH (06:06)
[2018-05-14] MEDS: METOCLOPRAMIDE HCL 5MG TABLET PO SCH ×3 (06:06→16:20)
[2018-05-14] MEDS: LEVOTHYROXINE SODIUM 25MCG TABLET PO SCH (06:06)
[2018-05-14] MEDS: INSULIN LISPRO 100 UNITS/ML SUBCUT SCH ×4 (06:06→21:00)
[2018-05-14] MEDS: BLOOD SUGAR DIAGNOSTIC STRIP TEST SCH ×4 (06:06→21:17)
[2018-05-14] MEDS: TRAMADOL 50MG TABLET PO PRN (06:42)
[2018-05-14 08:52] VITALS: BP 131/52
[2018-05-14] MEDS: PREDNISONE 5MG TABLET PO SCH (09:11)
[2018-05-14] MEDS: SILVER SULFADIAZINE 1% CREAM 25GM TOP SCH ×2 (09:11→21:17)
[2018-05-14] MEDS: DOCUSATE SODIUM 100MG CAPSULE PO SCH ×2 (09:11→16:20)
[2018-05-14] MEDS: TACROLIMUS 1MG CAPSULE PO SCH (09:11)
[2018-05-14] MEDS: METOPROLOL TARTRATE 25MG TABLET PO SCH ×2 (09:15→21:16)
[2018-05-14] MEDS: LOSARTAN POTASSIUM 50 MG TABLET PO SCH (09:15)
[2018-05-14] MEDS: RESTASIS 0.05% EYE EMULSION EACHEYE SCH ×2 (09:16→21:15)
[2018-05-14 20:00] VITALS: BP 133/54
[2018-05-14] MEDS ORDERED: EPOETIN ALFA 10000UNITS/ML VIAL SUBCUT SCH (21:00)
[2018-05-14] MEDS: POLYETHYLENE GLYCOL 3350 (17GM) 1 DOSE PACK PO SCH (21:16)
[2018-05-14] MEDS: FAMOTIDINE 20MG TABLET PO SCH (21:16)
[2018-05-15] MEDS: BLOOD SUGAR DIAGNOSTIC STRIP TEST SCH ×4 (05:42→20:57)
[2018-05-15] MEDS: INSULIN LISPRO 100 UNITS/ML SUBCUT SCH ×4 (05:43→20:57)
[2018-05-15] MEDS: TRAMADOL 50MG TABLET PO PRN ×2 (05:51→12:13)
[2018-05-15] MEDS: METOCLOPRAMIDE HCL 5MG TABLET PO SCH ×3 (06:05→17:14)
[2018-05-15] MEDS: ITRACONAZOLE 100MG CAPSULE PO SCH (06:05)
[2018-05-15] MEDS: LEVOTHYROXINE SODIUM 25MCG TABLET PO SCH (06:05)
[2018-05-15] MEDS ORDERED: NON FORMULARY PATIENT HOME MED XX SCH (07:00)
[2018-05-15 08:59] VITALS: BP 135/48
[2018-05-15] MEDS: LOSARTAN POTASSIUM 50 MG TABLET PO SCH (09:00)
[2018-05-15] MEDS: METOPROLOL TARTRATE 25MG TABLET PO SCH ×2 (09:00→21:00)
[2018-05-15] MEDS: PREDNISONE 5MG TABLET PO SCH (09:52)
[2018-05-15] MEDS: DOCUSATE SODIUM 100MG CAPSULE PO SCH ×2 (09:52→17:14)
[2018-05-15] MEDS: TACROLIMUS 1MG CAPSULE PO SCH (09:53)
[2018-05-15] MEDS: RESTASIS 0.05% EYE EMULSION EACHEYE SCH ×2 (10:03→20:57)
[2018-05-15] MEDS: SILVER SULFADIAZINE 1% CREAM 25GM TOP SCH ×2 (10:11→20:57)
[2018-05-15 20:00] VITALS: BP 150/58
[2018-05-15] MEDS: FAMOTIDINE 20MG TABLET PO SCH (20:57)
[2018-05-15] MEDS: POLYETHYLENE GLYCOL 3350 (17GM) 1 DOSE PACK PO SCH (20:57)
[2018-05-16 02:24] VITALS: BP 131/42
[2018-05-16] MEDS: BLOOD SUGAR DIAGNOSTIC STRIP TEST SCH ×2 (05:43→11:58)
[2018-05-16] MEDS: INSULIN LISPRO 100 UNITS/ML SUBCUT SCH ×2 (05:43→12:35)
[2018-05-16] MEDS: ITRACONAZOLE 100MG CAPSULE PO SCH (06:15)
[2018-05-16] MEDS: LEVOTHYROXINE SODIUM 25MCG TABLET PO SCH (06:15)
[2018-05-16] MEDS: METOCLOPRAMIDE HCL 5MG TABLET PO SCH ×2 (06:15→11:59)
[2018-05-16 08:00] VITALS: BP 145/61
[2018-05-16] MEDS: RESTASIS 0.05% EYE EMULSION EACHEYE SCH (08:25)
[2018-05-16] MEDS: PREDNISONE 5MG TABLET PO SCH (08:25)
[2018-05-16] MEDS: TACROLIMUS 1MG CAPSULE PO SCH (08:25)
[2018-05-16] MEDS: DOCUSATE SODIUM 100MG CAPSULE PO SCH (08:25)
[2018-05-16] MEDS: LOSARTAN POTASSIUM 50 MG TABLET PO SCH (08:26)
[2018-05-16] MEDS: METOPROLOL TARTRATE 25MG TABLET PO SCH (08:27)
[2018-05-16] MEDS: SILVER SULFADIAZINE 1% CREAM 25GM TOP SCH (08:27)
[2018-05-16 12:14] VITALS: BP 145/61
== END 2018-05-16 13:15 | disposition home health service (06) | DRG 535 ==
PROVIDERS: ADMIT Psychiatry & Neurology Neurology; ATTEND Internal Medicine
PROC: 30233N1 Transfusion of Nonautologous Red Blood Cells into Peripheral Vein, Percutaneous Approach (ICD-10-PCS; principal; 2018-05-05)
PROC: 5A1D70Z Performance of Urinary Filtration, Intermittent, Less than 6 Hours Per Day (ICD-10-PCS; 2018-05-05)
PROC: 5A1D70Z Performance of Urinary Filtration, Intermittent, Less than 6 Hours Per Day (ICD-10-PCS; 2018-05-07)
PROC: 5A1D70Z Performance of Urinary Filtration, Intermittent, Less than 6 Hours Per Day (ICD-10-PCS; 2018-05-09)
PROC: 5A1D70Z Performance of Urinary Filtration, Intermittent, Less than 6 Hours Per Day (ICD-10-PCS; 2018-05-13)
PROC: 5A1D70Z Performance of Urinary Filtration, Intermittent, Less than 6 Hours Per Day (ICD-10-PCS; 2018-05-15)
DX: S32.591A Other specified fracture of right pubis, initial encounter for closed fracture (principal); N18.6 End stage renal disease; E43 Unspecified severe protein-calorie malnutrition; I12.0 Hypertensive chronic kidney disease with stage 5 chronic kidney disease or end stage renal disease; T86.11 Kidney transplant rejection; M85.80 Other specified disorders of bone density and structure, unspecified site; W18.30XA Fall on same level, unspecified, initial encounter; Y83.0 Surgical operation with transplant of whole organ as the cause of abnormal reaction of the patient, or of later complication, without mention of misadventure at the time of the procedure; E03.9 Hypothyroidism, unspecified; K59.00 Constipation, unspecified; E11.22 Type 2 diabetes mellitus with diabetic chronic kidney disease; M32.9 Systemic lupus erythematosus, unspecified; D63.8 Anemia in other chronic diseases classified elsewhere; Z68.22 Body mass index [BMI] 22.0-22.9, adult; E78.5 Hyperlipidemia, unspecified; E11.40 Type 2 diabetes mellitus with diabetic neuropathy, unspecified; K21.9 Gastro-esophageal reflux disease without esophagitis; K52.9 Noninfective gastroenteritis and colitis, unspecified; M25.551 Pain in right hip; Z82.49 Family history of ischemic heart disease and other diseases of the circulatory system; Z79.4 Long term (current) use of insulin; Z99.2 Dependence on renal dialysis; Y93.89 Activity, other specified; Y92.098 Other place in other non-institutional residence as the place of occurrence of the external cause; Y99.8 Other external cause status; Z79.899 Other long term (current) drug therapy; Z88.0 Allergy status to penicillin; Z88.6 Allergy status to analgesic agent; F06.31 Mood disorder due to known physiological condition with depressive features
CPT/HCPCS: 36415; 73110; 73130; 80048; 82962; 83735; 84100; 84134; 85027; 86850; 86900; 86920; 97110; 97112; 97116; 97162; 97167; 97530; 97535; J0885; J1650; J1815; J7040; J7507; J7512; J7517; J8597; P9016; Q0162

== ENCOUNTER 2018-07-01 19:16 | Inpatient (IN) | payer MEDICARE, MEDICAID ==
[~2018-07-01] VITALS: Ht 152.4 cm; Wt 57.6 kg
[~2018-07-01 19:16] MED LIST changes: -DILT300T10 MT; -FURO40TA5 MT
[2018-07-01 21:12] LABS: CHLORIDE 102 mEq/L (98-107)
[2018-07-01 21:15] LABS: PROTHROMBIN TIME 10.4 sec (9.6-11.0)
[2018-07-01 21:31] LABS: BASOPHILS % 0.5 % (0.0-2.0); EOSINOPHILS % 0.3 % (0.0-5.0); HEMATOCRIT. 30.4 % (36.0-48.0); HEMOGLOBIN. 9.7 g/dL (12.0-16.0); LYMPHOCYTES % 33.2 % (20.0-50.0); MEAN CORPUSCULAR HEMOGLOBIN 30.7 pg (28.0-32.0); MEAN CORPUSCULAR VOLUME 95.9 fL (81.0-99.0); MEAN PLATELET VOLUME 8.4 fl (7.4-10.4); MONOCYTES % 5.9 % (2.0-8.0); NEUTROPHILS % 60.1 % (40.0-76.0); PLATELET 162 x1000/uL (130-400); RED BLOOD CELL COUNT 3.17 mill/uL (4.2-5.4); RED CELL DISTRIBUTION WIDTH 17.9 % (11.6-14.6)
[2018-07-01] MEDS ORDERED: SODIUM POLYSTYRENE SULFONATE 15 G/60 ML BOT PO NR (21:47)
[2018-07-01] MEDS ORDERED: ONDANSETRON HCL 4MG/2ML INJ IV PRN (23:45)
[2018-07-01] MEDS ORDERED: DIPHENHYDRAMINE 50MG/ML VIAL IV PRN (23:45)
[2018-07-01] MEDS ORDERED: MAGNESIUM/ALUMINUM HYDROXIDE/SIMETHICONE 30ML UDC PO PRN (23:45)
[2018-07-01] MEDS ORDERED: DEXTROSE 50% WATER 50ML SYRINGE IV PRN (23:45)
[2018-07-01] MEDS ORDERED: ACETAMINOPHEN 325MG TABLET PO PRN (23:45)
[2018-07-01] MEDS ORDERED: IPRATROPIUM/ALBUTEROL 0.5-3(2.5)MG/3ML NEB INH PRN (23:45)
[2018-07-01] MEDS ORDERED: CLONIDINE 0.1MG TABLET PO PRN (23:45)
[2018-07-02 00:29] VITALS: BP 146/54
[2018-07-02] MEDS ORDERED: FAMO20TA8 PO (02:25)
[2018-07-02 04:05] VITALS: BP 162/62
[2018-07-02] MEDS: SODIUM CHLORIDE 0.9% INJ 3ML FLUSH IVF SCH ×2 (06:03→13:51)
[2018-07-02] MEDS: BLOOD SUGAR DIAGNOSTIC STRIP TEST SCH ×3 (06:25→17:47)
[2018-07-02] MEDS ORDERED: LEVOTHYROXINE SODIUM 25MCG TABLET PO SCH (07:20)
[2018-07-02] MEDS: INSULIN LISPRO 100 UNITS/ML SUBCUT SCH ×3 (07:50→17:50)
[2018-07-02 08:00] VITALS: BP 131/86
[2018-07-02] MEDS ORDERED: PNEUMOCOCCAL 23-VAL P-SAC VAC 0.5 ML IM ONE (08:00)
[2018-07-02] MEDS ORDERED: TACROLIMUS 1MG CAPSULE PO SCH (09:00)
[2018-07-02] MEDS ORDERED: POLYETHYLENE GLYCOL 3350 (17GM) 1 DOSE PACK PO SCH (09:00)
[2018-07-02] MEDS ORDERED: PREDNISONE 5MG TABLET PO SCH (09:00)
[2018-07-02] MEDS ORDERED: LOSARTAN POTASSIUM 50 MG TABLET PO SCH (09:00)
[2018-07-02] MEDS ORDERED: METOPROLOL TARTRATE 25MG TABLET PO SCH (09:00)
[2018-07-02] MEDS ORDERED: MYCOPHENOLATE MOFETIL 250MG CAPSULE PO SCH (09:00)
[2018-07-02 12:00] VITALS: BP 140/54
[2018-07-02 13:12] LABS: BASOPHILS % 0.4 % (0.0-2.0); EOSINOPHILS % 1.8 % (0.0-5.0); HEMATOCRIT. 30.1 % (36.0-48.0); HEMOGLOBIN. 9.5 g/dL (12.0-16.0); LYMPHOCYTES % 33.8 % (20.0-50.0); MEAN CORPUSCULAR HEMOGLOBIN 30.1 pg (28.0-32.0); MEAN CORPUSCULAR VOLUME 95.3 fL (81.0-99.0); MEAN PLATELET VOLUME 8.3 fl (7.4-10.4); MONOCYTES % 6.1 % (2.0-8.0); NEUTROPHILS % 57.9 % (40.0-76.0); PLATELET 154 x1000/uL (130-400); RED BLOOD CELL COUNT 3.16 mill/uL (4.2-5.4); RED CELL DISTRIBUTION WIDTH 17.9 % (11.6-14.6)
[2018-07-02 17:25] VITALS: BP 139/56
[2018-07-02 18:29] VITALS: BP 152/88
[2018-07-02] MEDS ORDERED: FAMOTIDINE 20MG TABLET PO SCH (21:00)
== END 2018-07-02 19:52 | disposition home or self-care (01) | DRG 314 ==
LOC: ER 19:16 → 6WST 21:56 → ENRESERV 23:40
PROVIDERS: ADMIT Internal Medicine; ATTEND Internal Medicine
DX: T82.838A Hemorrhage due to vascular prosthetic devices, implants and grafts, initial encounter (principal); N18.6 End stage renal disease; I12.0 Hypertensive chronic kidney disease with stage 5 chronic kidney disease or end stage renal disease; Y84.1 Kidney dialysis as the cause of abnormal reaction of the patient, or of later complication, without mention of misadventure at the time of the procedure; E03.9 Hypothyroidism, unspecified; E11.22 Type 2 diabetes mellitus with diabetic chronic kidney disease; E78.00 Pure hypercholesterolemia, unspecified; E87.5 Hyperkalemia; M32.9 Systemic lupus erythematosus, unspecified; Z79.4 Long term (current) use of insulin; Z82.49 Family history of ischemic heart disease and other diseases of the circulatory system; Z90.710 Acquired absence of both cervix and uterus; Z99.2 Dependence on renal dialysis; Z88.6 Allergy status to analgesic agent; Z88.0 Allergy status to penicillin; Z79.899 Other long term (current) drug therapy; Y92.89 Other specified places as the place of occurrence of the external cause; Z87.81 Personal history of (healed) traumatic fracture
CPT/HCPCS: 36415; 80048; 82962; 83036; 86850; 86900; 90732; 93005; 99285; J1815; J7507; J7512; J7517

== ENCOUNTER 2023-06-18 12:17 | Emergency (ER) | payer MEDICARE, MEDICAID ==
[~2023-06-18] VITALS: Ht 157.5 cm; Wt 69.0 kg
[~2023-06-18 12:17] MED LIST changes: +FAMO20TA8 PO; -LOSA50TA20 MT; +LOSA50TA41 MT; +MEGE400O46 PO; -PANT40TA4 MT; +PANT40TA51 MT; -PROG1 PO; +TACR1CAP2 PO
[2023-06-18 12:21] VITALS: O2SAT 100
[2023-06-18 13:43] LABS: BASOPHILS % 0.5 % (0.0-2.0); EOSINOPHILS % 0.2 % (0.0-5.0); HEMATOCRIT. 32.3 % (36.0-48.0); HEMOGLOBIN. 10.9 g/dL (12.0-16.0); LYMPHOCYTES % 8.8 % (20.0-50.0); MEAN CORPUSCULAR HEMOGLOBIN 31.5 pg (28.0-32.0); MEAN CORPUSCULAR HGB CONC 33.7 g/dL (31.0-37.0); MEAN CORPUSCULAR VOLUME 93.6 fL (81.0-99.0); MEAN PLATELET VOLUME 8.7 fl (7.4-10.4); MONOCYTES % 6.4 % (2.0-8.0); NEUTROPHILS % 84.1 % (40.0-76.0); PLATELET 177 x1000/uL (130-400); RED BLOOD CELL COUNT 3.45 mill/uL (4.2-5.4); RED CELL DISTRIBUTION WIDTH 18.3 % (11.6-14.6); WHITE BLOOD COUNT 6.4 x1000/uL (4.5-11.0)
[2023-06-18 13:53] LABS: ALANINE AMINOTRANSFERASE 7 IU/L (10-49); ALBUMIN 4.1 g/dL (3.2-4.8); ASPARTATE AMINOTRANSFERASE 17 IU/L (<34); BILIRUBIN TOTAL 0.4 mg/dL (0.1-1.0); CALCIUM 8.9 mg/dL (8.7-10.4); CARBON DIOXIDE 31 mEq/L (21-32); CHLORIDE 98 mEq/L (98-107); CREATININE 2.7 mg/dL (0.6-1.0); GLUCOSE 212 mg/dL (70-105); POTASSIUM 4.5 mEq/L (3.5-5.1); PROTEIN TOTAL 7.1 g/dL (6.0-8.3); SODIUM 135 mEq/L (136-145); UREA NITROGEN BLOOD 24 mg/dL (9-23)
[2023-06-18 18:53] VITALS: BP 154/70; PULSE 66; RESP 12; TEMP 97.7
== END 2023-06-18 19:24 | disposition home or self-care (01) ==
LOC: ER 12:17
DX: I48.20 Chronic atrial fibrillation, unspecified (principal); I12.9 Hypertensive chronic kidney disease with stage 1 through stage 4 chronic kidney disease, or unspecified chronic kidney disease; E11.22 Type 2 diabetes mellitus with diabetic chronic kidney disease; N18.9 Chronic kidney disease, unspecified; E78.00 Pure hypercholesterolemia, unspecified; Z88.0 Allergy status to penicillin; Z88.6 Allergy status to analgesic agent; Z88.5 Allergy status to narcotic agent; Z79.899 Other long term (current) drug therapy; Z86.39 Personal history of other endocrine, nutritional and metabolic disease
CPT/HCPCS: 36415; 71045; 80053; 83880; 85025; 93005; 99285

== ENCOUNTER 2025-01-24 11:10 | Inpatient (IN) | payer MEDICARE, MEDICAID ==
[~2025-01-24] VITALS: Ht 154.9 cm; Wt 70.3 kg
[2025-01-24] MEDS: LACTATED RINGERS 500 ML IV SCH (11:45)
[2025-01-24 12:05] LABS: BASOPHILS % 0.4 % (0.0-2.0); EOSINOPHILS % 0.3 % (0.0-5.0); HEMATOCRIT. 33.0 % (36.0-48.0); HEMOGLOBIN. 10.8 g/dL (12.0-16.0); LYMPHOCYTES % 27.6 % (20.0-50.0); MEAN PLATELET VOLUME 11.2 fl (7.4-10.4); MONOCYTES % 7.1 % (2.0-8.0); NEUTROPHILS % 64.6 % (40.0-76.0); PLATELET 109 x1000/uL (130-400); RED BLOOD CELL COUNT 3.30 mill/uL (4.2-5.4); RED CELL DISTRIBUTION WIDTH 17.7 % (11.6-14.6)
[2025-01-24 12:27] LABS: TROPONIN I HIGH SENSITIVITY 58 ng/L (3.0-34)
[2025-01-24 13:07] LABS: UREA NITROGEN BLOOD 23 mg/dL (9-23)
[2025-01-24 13:09] LABS: ASPARTATE AMINOTRANSFERASE 35 IU/L (<34); BILIRUBIN DIRECT 0.7 mg/dL (<=3.0); BILIRUBIN TOTAL 1.1 mg/dL (0.1-1.0)
[2025-01-24 13:10] LABS: CREATININE 4.0 mg/dL (0.6-1.0); PROTEIN TOTAL 5.1 g/dL (6.0-8.3)
[2025-01-24] MEDS ORDERED: ACETAMINOPHEN 325MG TABLET PO PRN ×2 (14:45)
[2025-01-24] MEDS ORDERED: GUAIFENESIN 200MG/10ML SUGAR FREE UDC PO PRN (14:45)
[2025-01-24] MEDS ORDERED: DOCUSATE SODIUM 100MG CAPSULE PO PRN (14:45)
[2025-01-24] MEDS: CALCITRIOL 0.25MCG CAPSULE PO SCH (16:00)
[2025-01-24 16:48] LABS: TROPONIN I HIGH SENSITIVITY 70 ng/L (3.0-34)
[2025-01-24] MEDS: SODIUM BICARBONATE 650MG TABLET PO SCH (17:00)
[2025-01-24] MEDS: CALCIUM CARBONATE/VITAMIN D3 500MG TABLET PO SCH (17:00)
[2025-01-24 17:22] LABS: TRIGLYCERIDE 307 mg/dL (0-150)
[2025-01-24 17:23] LABS: LDL CHOLESTEROL 41 mg/dL (5-100)
[2025-01-24 18:01] LABS: FOLIC ACID (FOLATE) SERUM > 20.00 ng/mL (>5.38)
[2025-01-24 18:02] LABS: VITAMIN B12 SERUM 1064 pg/mL (211-911)
[2025-01-24] MEDS: BLOOD SUGAR DIAGNOSTIC STRIP TEST SCH (19:05)
[2025-01-24] MEDS: DEXTROSE 50% WATER 50ML SYRINGE IV PRN (19:07)
[2025-01-24] MEDS: MIDODRINE HCL 5MG TABLET PO SCH (20:44)
[2025-01-24] MEDS: SODIUM CHLORIDE 0.9% 250 ML IV ONE (20:44)
[2025-01-24] MEDS ORDERED: MYCOPHENOLATE MOFETIL 250MG CAPSULE PO SCH (21:00)
[2025-01-24 22:00] VITALS: BP 88/56; PULSE 104; RESP 23; TEMP 37.2; O2SAT 97
[2025-01-24 23:10] VITALS: BP 101/59; PULSE 110; RESP 20; TEMP 37.53
[2025-01-25] VITALS (49 sets, daily range): BP systolic 53–154; BP diastolic 36–87; PULSE 71–147; RESP 12–37; TEMP 36.4–36.9; O2SAT 92–100
[2025-01-25 00:53] LABS: TROPONIN I HIGH SENSITIVITY 139 ng/L (3.0-34)
[2025-01-25] MEDS: MIDODRINE HCL 5MG TABLET PO NR ×2 (03:24→06:29)
[2025-01-25] MEDS: SODIUM CHLORIDE 0.9% 500 ML IV ONE ×3 (03:24→12:22)
[2025-01-25 07:16] LABS: BASOPHILS % 0.3 % (0.0-2.0); EOSINOPHILS % 0.1 % (0.0-5.0); HEMATOCRIT. 26.9 % (36.0-48.0); HEMOGLOBIN. 9.0 g/dL (12.0-16.0); LYMPHOCYTES % 23.5 % (20.0-50.0); MEAN PLATELET VOLUME 11.5 fl (7.4-10.4); MONOCYTES % 5.7 % (2.0-8.0); NEUTROPHILS % 70.4 % (40.0-76.0); PLATELET 79 x1000/uL (130-400); RED BLOOD CELL COUNT 2.90 mill/uL (4.2-5.4); RED CELL DISTRIBUTION WIDTH 17.2 % (11.6-14.6)
[2025-01-25 07:50] LABS: CREATININE 3.5 mg/dL (0.6-1.0); UREA NITROGEN BLOOD 32 mg/dL (9-23)
[2025-01-25 07:51] LABS: PROTEIN TOTAL 4.0 g/dL (6.0-8.3)
[2025-01-25 07:52] LABS: ASPARTATE AMINOTRANSFERASE 34 IU/L (<34); BILIRUBIN DIRECT 0.6 mg/dL (<=3.0); PHOSPHORUS 2.4 mg/dL (2.5-4.9)
[2025-01-25 07:53] LABS: BILIRUBIN TOTAL 0.9 mg/dL (0.1-1.0)
[2025-01-25 07:54] LABS: T4 FREE 1.27 ng/dL (0.89-1.76)
[2025-01-25 07:58] LABS: TROPONIN I HIGH SENSITIVITY 196 ng/L (3.0-34)
[2025-01-25] MEDS: LEVOTHYROXINE SODIUM 25MCG TABLET PO SCH (08:29)
[2025-01-25] MEDS: DIGOXIN 500MCG/2ML AMP IV NR ×2 (08:29→11:25)
[2025-01-25] MEDS ORDERED: TACROLIMUS 0.5 MG CAPSULE PO SCH (09:00)
[2025-01-25] MEDS ORDERED: LIDOCAINE HCL 1% 10 MG/ML 10ML VIAL ONE (09:14)
[2025-01-25] MEDS: ASPIRIN 81MG TABLET PO SCH (09:59)
[2025-01-25] MEDS: MAGNESIUM 2 G PREMIX 50 ML IV NR (11:23)
[2025-01-25] MEDS: MAGNESIUM 2 G PREMIX 50 ML IV SCH (12:00)
[2025-01-25] MEDS: PIPERACILLIN/TAZO 3.375G/50ML 50 ML IV SCH (12:29)
[2025-01-25] MEDS: ALBUMIN HUMAN 12.5GM/50ML (25%) IV SCH (12:29)
[2025-01-25] MEDS: HYDROCORTISONE SOD SUCCINATE 100 MG/2 ML VIAL IV SCH (13:44)
[2025-01-25] MEDS ORDERED: NOREPINEPHRINE 8MG/250ML PMX 250 ML IV PRN (13:45)
[2025-01-25] MEDS: CALCITRIOL 0.25MCG CAPSULE PO SCH (13:48)
[2025-01-25 13:50] LABS: BG BASE EXCESS -0.9 mmol/L (-2.0-3.0); BG CARBOXYHEMOGLOBIN 1.2 % (0.5-1.5); BG DEOXYHEMOGLOBIN 7.2 % (0.0-5.0); BG FRACTION INSPIRED OXYGEN 21; BG HCO3 ACT 20.8 mmol/L (21.0-28.0); BG METHEMOGLOBIN 0.0 % (0.5-1.5); BG OXYGEN SATURATION 92.7 % (94.0-98.0); BG OXYHEMOGLOBIN 91.6 % (94.0-98.0); BG PCO2 24.8 mmHg (32.0-45.0); BG PH 7.542 (7.350-7.450); BG PO2 75.3 mmHg (83.0-108.0); BG SAMPLE SITE RIGHT BRACHIAL; BG TOTAL HEMOGLOBIN 8.9 g/dL (12.0-16.0); BG VENT MODE ROOM AIR
[2025-01-25] MEDS: CALCIUM GLUCONATE 1GM PREMIX 50 ML IV NR (15:40)
[2025-01-25] MEDS: VANCOMYCIN 1.5GM PMX (XELLIA) 300 ML IV SCH (15:40)
[2025-01-25] MEDS: SODIUM PHOSPHATE 10 MMOL in DEXT 5% WATER 246.6667 ML IV SCH (15:40)
[2025-01-25] MEDS: PROPRANOLOL HCL 10MG TABLET PO SCH (15:43)
[2025-01-25 19:58] LABS: HEPATITIS A AB IGM NEGATIVE (Negative)
[2025-01-25 19:59] LABS: HEPATITIS B CORE AB IGM NEGATIVE (Negative); HEPATITIS C AB NON REACTIVE (Neg) (Negative)
[2025-01-25] MEDS: ATORVASTATIN CALCIUM 40MG TABLET PO SCH (21:00)
[2025-01-25] MEDS ORDERED: DEXTROSE 50% WATER 50ML SYRINGE IV PRN (22:15)
[2025-01-25] MEDS: INSULIN LISPRO 100 UNITS/ML SUBCUT SCH (22:22)
[2025-01-26] VITALS (93 sets, daily range): BP systolic 82–166; BP diastolic 45–115; PULSE 65–123; RESP 11–26; TEMP 36.5–37.2; O2SAT 98–100
[2025-01-26] MEDS: ONDANSETRON HCL 4MG/2ML INJ IV PRN (04:53)
[2025-01-26 04:58] LABS: BASOPHILS % 0.4 % (0.0-2.0); EOSINOPHILS % 0.1 % (0.0-5.0); HEMATOCRIT. 27.9 % (36.0-48.0); HEMOGLOBIN. 9.3 g/dL (12.0-16.0); LYMPHOCYTES % 16.3 % (20.0-50.0); MEAN PLATELET VOLUME 11.6 fl (7.4-10.4); MONOCYTES % 4.6 % (2.0-8.0); NEUTROPHILS % 78.6 % (40.0-76.0); PLATELET 75 x1000/uL (130-400); RED BLOOD CELL COUNT 2.88 mill/uL (4.2-5.4); RED CELL DISTRIBUTION WIDTH 17.4 % (11.6-14.6)
[2025-01-26 05:13] LABS: CREATININE 4.2 mg/dL (0.6-1.0); UREA NITROGEN BLOOD 38 mg/dL (9-23)
[2025-01-26 05:14] LABS: ASPARTATE AMINOTRANSFERASE 32 IU/L (<34)
[2025-01-26 05:15] LABS: BILIRUBIN DIRECT 0.6 mg/dL (<=3.0); BILIRUBIN TOTAL 0.9 mg/dL (0.1-1.0); PHOSPHORUS 4.1 mg/dL (2.5-4.9); PROTEIN TOTAL 4.3 g/dL (6.0-8.3)
[2025-01-26] MEDS: MAGNESIUM 2 G PREMIX 50 ML IV NR (10:05)
[2025-01-26] MEDS: CALCIUM GLUCONATE 1GM PREMIX 50 ML IV SCH (13:44)
[2025-01-26] MEDS ORDERED: CEFEPIME 1GM/50ML 50 ML IV SCH (14:45)
[2025-01-26] MEDS: CEFEPIME 1GM PREMIX 50ML IV SCH (17:23)
[2025-01-26] MEDS: CALCIUM CARBONATE/VITAMIN D3 500MG TABLET PO SCH (17:24)
[2025-01-26] MEDS ORDERED: VANCOMYCIN 500MG/100ML IV SCH (21:00)
[2025-01-26] MEDS: ASCORBIC ACID 250 MG TABLET PO SCH (21:05)
[2025-01-26] MEDS: PHENYLEPHRINE 100 MG in DEXT 5% WATER 240 ML IV PRN (22:08)
[2025-01-26] MEDS: VANCOMYCIN 500MG/100ML IV SCH (23:57)
[2025-01-27] VITALS (28 sets, daily range): BP systolic 88–163; BP diastolic 35–101; PULSE 83–116; RESP 13–21; TEMP 36–36.9; O2SAT 99–100
[2025-01-27 05:50] LABS: BASOPHILS % 0.1 % (0.0-2.0); EOSINOPHILS % 0.1 % (0.0-5.0); HEMATOCRIT. 29.7 % (36.0-48.0); HEMOGLOBIN. 9.6 g/dL (12.0-16.0); LYMPHOCYTES % 15.9 % (20.0-50.0); MEAN PLATELET VOLUME 11.4 fl (7.4-10.4); MONOCYTES % 7.4 % (2.0-8.0); NEUTROPHILS % 76.5 % (40.0-76.0); PLATELET 71 x1000/uL (130-400); RED BLOOD CELL COUNT 3.04 mill/uL (4.2-5.4); RED CELL DISTRIBUTION WIDTH 17.2 % (11.6-14.6)
[2025-01-27 05:52] LABS: CREATININE 3.7 mg/dL (0.6-1.0); PROTEIN TOTAL 4.5 g/dL (6.0-8.3)
[2025-01-27 05:53] LABS: UREA NITROGEN BLOOD 25 mg/dL (9-23)
[2025-01-27 05:54] LABS: ASPARTATE AMINOTRANSFERASE 27 IU/L (<34); BILIRUBIN DIRECT 0.6 mg/dL (<=3.0); PHOSPHORUS 4.0 mg/dL (2.5-4.9)
[2025-01-27 05:55] LABS: BILIRUBIN TOTAL 0.9 mg/dL (0.1-1.0)
[2025-01-27] MEDS: CALCITRIOL 0.25MCG CAPSULE PO SCH (08:10)
[2025-01-28] VITALS (22 sets, daily range): BP systolic 80–124; BP diastolic 26–81; PULSE 78–121; RESP 14–26; TEMP 36.3–36.8; O2SAT 88–100
[2025-01-28 07:10] LABS: BASOPHILS % 0.1 % (0.0-2.0); EOSINOPHILS % 0.1 % (0.0-5.0); HEMATOCRIT. 29.1 % (36.0-48.0); HEMOGLOBIN. 9.5 g/dL (12.0-16.0); LYMPHOCYTES % 15.2 % (20.0-50.0); MEAN PLATELET VOLUME 11.0 fl (7.4-10.4); MONOCYTES % 6.2 % (2.0-8.0); NEUTROPHILS % 78.4 % (40.0-76.0); PLATELET 79 x1000/uL (130-400); RED BLOOD CELL COUNT 3.07 mill/uL (4.2-5.4); RED CELL DISTRIBUTION WIDTH 17.2 % (11.6-14.6)
[2025-01-28 07:28] LABS: CREATININE 4.5 mg/dL (0.6-1.0); UREA NITROGEN BLOOD 36 mg/dL (9-23)
[2025-01-28 07:30] LABS: PHOSPHORUS 3.9 mg/dL (2.5-4.9)
[2025-01-28] MEDS: CALCITRIOL 0.25MCG CAPSULE PO SCH (09:42)
[2025-01-28] MEDS: MIDODRINE HCL 5MG TABLET PO SCH ×3 (11:42→19:00)
[2025-01-28] MEDS: PREDNISONE 10MG TABLET PO SCH (11:42)
[2025-01-29] VITALS (12 sets, daily range): BP systolic 92–138; BP diastolic 35–93; PULSE 82–102; RESP 15–23; TEMP 36–36.9; O2SAT 98–100
[2025-01-29 07:12] LABS: BASOPHILS % 0.1 % (0.0-2.0); EOSINOPHILS % 0.2 % (0.0-5.0); LYMPHOCYTES % 12.9 % (20.0-50.0); MEAN PLATELET VOLUME 11.0 fl (7.4-10.4); MONOCYTES % 9.9 % (2.0-8.0); NEUTROPHILS % 76.9 % (40.0-76.0); PLATELET 88 x1000/uL (130-400); RED BLOOD CELL COUNT 2.53 mill/uL (4.2-5.4); RED CELL DISTRIBUTION WIDTH 17.7 % (11.6-14.6)
[2025-01-29 07:23] LABS: HEMATOCRIT. 24.3 % (36.0-48.0); HEMOGLOBIN. 7.9 g/dL (12.0-16.0)
[2025-01-29 07:47] LABS: CREATININE 3.3 mg/dL (0.6-1.0); UREA NITROGEN BLOOD 28 mg/dL (9-23)
[2025-01-29 07:49] LABS: PHOSPHORUS 2.6 mg/dL (2.5-4.9)
[2025-01-29] MEDS: MIDODRINE HCL 5MG TABLET PO SCH (14:09)
[2025-01-29] MEDS: PANTOPRAZOLE SODIUM 40 MG/VIAL IV SCH (18:36)
[2025-01-29] MEDS: VANCOMYCIN 500MG/100ML IV SCH (20:39)
[2025-01-29] MEDS: EPOETIN ALFA-EPBX 4,000 UNITS/ML VIAL SUBCUT SCH (20:40)
[2025-01-30] VITALS (8 sets, daily range): BP systolic 125–157; BP diastolic 41–67; PULSE 86–109; RESP 18–23; TEMP 36.4–36.7; O2SAT 99–100
[2025-01-30 07:09] LABS: UREA NITROGEN BLOOD 31 mg/dL (9-23)
[2025-01-30 07:10] LABS: CREATININE 3.8 mg/dL (0.6-1.0)
[2025-01-30 07:12] LABS: ASPARTATE AMINOTRANSFERASE 30 IU/L (<34); BILIRUBIN DIRECT 0.3 mg/dL (<=3.0); BILIRUBIN TOTAL 0.5 mg/dL (0.1-1.0); PHOSPHORUS 2.5 mg/dL (2.5-4.9); PROTEIN TOTAL 4.3 g/dL (6.0-8.3)
[2025-01-30 07:33] LABS: BASOPHILS % 0.1 % (0.0-2.0); EOSINOPHILS % 0.9 % (0.0-5.0); HEMATOCRIT. 23.3 % (36.0-48.0); HEMOGLOBIN. 7.5 g/dL (12.0-16.0); LYMPHOCYTES % 10.2 % (20.0-50.0); MEAN PLATELET VOLUME 10.2 fl (7.4-10.4); MONOCYTES % 7.2 % (2.0-8.0); NEUTROPHILS % 81.6 % (40.0-76.0); PLATELET 89 x1000/uL (130-400); RED BLOOD CELL COUNT 2.40 mill/uL (4.2-5.4); RED CELL DISTRIBUTION WIDTH 18.0 % (11.6-14.6)
[2025-01-30] MEDS ORDERED: MIDODRINE HCL 5MG TABLET PO PRN (09:45)
[2025-01-30] MEDS ORDERED: HYDROCODONE/ACETAMINOPHEN 5/325MG TABLET PO PRN (17:00)
[2025-01-30] MEDS ORDERED: NALOXONE HCL 0.4MG/ML VIAL IV PRN (17:00)
[2025-01-30] MEDS: SUCRALFATE 1G TABLET PO SCH (20:35)
[2025-01-31] VITALS (32 sets, daily range): BP systolic 108–151; BP diastolic 29–104; PULSE 63–104; RESP 16–27; TEMP 36.2–36.8; O2SAT 89–100
[2025-01-31 06:08] LABS: CREATININE 4.4 mg/dL (0.6-1.0)
[2025-01-31 06:09] LABS: UREA NITROGEN BLOOD 42.0 mg/dL (9-23)
[2025-01-31 06:28] LABS: BASOPHILS % 0.4 % (0.0-2.0); EOSINOPHILS % 0.5 % (0.0-5.0); HEMATOCRIT. 25.5 % (36.0-48.0); HEMOGLOBIN. 8.1 g/dL (12.0-16.0); LYMPHOCYTES % 14.3 % (20.0-50.0); MEAN PLATELET VOLUME 10.6 fl (7.4-10.4); MONOCYTES % 4.6 % (2.0-8.0); NEUTROPHILS % 80.2 % (40.0-76.0); PLATELET 112 x1000/uL (130-400); RED BLOOD CELL COUNT 2.53 mill/uL (4.2-5.4); RED CELL DISTRIBUTION WIDTH 18.6 % (11.6-14.6)
[2025-01-31 09:20] LABS: ERYTHROCYTE SEDIMENTATION RATE 10 mm/hr (0-30)
[2025-01-31] MEDS: ACETAMINOPHEN 650MG/20.3ML UDC PO PRN (11:23)
[2025-01-31] MEDS: DILTIAZEM HCL 120MG CAPSULE ER 24HR PO SCH (13:10)
[2025-01-31] MEDS ORDERED: DEXTROSE 50% WATER 50ML SYRINGE IV PRN (15:30)
[2025-01-31] MEDS: CALCIUM CARBONATE/VITAMIN D3 500MG TABLET PO SCH (17:24)
[2025-01-31] MEDS ORDERED: METOPROLOL TARTRATE 50MG TABLET PO SCH (21:00)
[2025-01-31] MEDS: CLONIDINE 0.1MG TABLET PO SCH (21:25)
[2025-02-01] VITALS (18 sets, daily range): BP systolic 95–128; BP diastolic 31–82; PULSE 82–107; RESP 19–27; TEMP 36.2–36.8; O2SAT 95–100
[2025-02-01 05:55] LABS: HEMATOCRIT. 26.7 % (36.0-48.0); HEMOGLOBIN. 8.5 g/dL (12.0-16.0); MEAN PLATELET VOLUME 10.6 fl (7.4-10.4); PLATELET 102 x1000/uL (130-400); RED BLOOD CELL COUNT 2.62 mill/uL (4.2-5.4); RED CELL DISTRIBUTION WIDTH 19.2 % (11.6-14.6)
[2025-02-01 06:14] LABS: CREATININE 4.1 mg/dL (0.6-1.0)
[2025-02-01 06:15] LABS: UREA NITROGEN BLOOD 34.0 mg/dL (9-23)
[2025-02-01 06:17] LABS: PHOSPHORUS 3.1 mg/dL (2.5-4.9)
[2025-02-01] MEDS: FERROUS SULFATE 325MG TABLET PO SCH (09:41)
[2025-02-01 22:15] LABS: BAND% 3.0 % (1.0-6.0); LYMPHOCYTES % MANUAL 3.0 % (20.0-60.0); MONOCYTES % MANUAL 3.0 % (2.0-8.0); NEUTROPHILS % MANUAL 91.0 % (45.0-75.0); PLATELET ESTIMATE DECREASED
[2025-02-02] VITALS (15 sets, daily range): BP systolic 108–145; BP diastolic 32–97; PULSE 89–112; RESP 16–23; TEMP 36.55848–36.9; O2SAT 94–100
[2025-02-02] MEDS: DEXTROSE 5% WATER 1,000 ML IV SCH (00:43)
[2025-02-02 05:22] LABS: BASOPHILS % 0.7 % (0.0-2.0); EOSINOPHILS % 0.4 % (0.0-5.0); HEMATOCRIT. 27.1 % (36.0-48.0); HEMOGLOBIN. 9.0 g/dL (12.0-16.0); LYMPHOCYTES % 21.8 % (20.0-50.0); MEAN PLATELET VOLUME 11.9 fl (7.4-10.4); MONOCYTES % 5.7 % (2.0-8.0); NEUTROPHILS % 71.4 % (40.0-76.0); PLATELET 129 x1000/uL (130-400); RED BLOOD CELL COUNT 2.77 mill/uL (4.2-5.4); RED CELL DISTRIBUTION WIDTH 21.0 % (11.6-14.6)
[2025-02-02 05:33] LABS: INR 1.1
[2025-02-02 05:43] LABS: CREATININE 4.5 mg/dL (0.6-1.0); UREA NITROGEN BLOOD 38.0 mg/dL (9-23)
[2025-02-02 05:45] LABS: PHOSPHORUS 3.8 mg/dL (2.5-4.9)
[2025-02-02] MEDS: CALCIUM CARBONATE 500MG TABLET CHEW PO SCH (20:43)
[2025-02-02] MEDS: VANCOMYCIN 500MG/100ML IV SCH (20:43)
[2025-02-03] VITALS (12 sets, daily range): BP systolic 102–174; BP diastolic 52–93; PULSE 85–102; RESP 16–22; TEMP 36.3–36.6696; O2SAT 98–100
[2025-02-03] MEDS ORDERED: HYDRALAZINE 20MG/ML VIAL IV PRN (10:45)
[2025-02-03] MEDS: FUROSEMIDE 100MG/10ML VIAL IVP NR (10:58)
[2025-02-03] MEDS: DILTIAZEM HCL 30MG TABLET PO SCH (17:29)
[2025-02-03 19:56] LABS: HEMATOCRIT. 25.7 % (36.0-48.0); HEMOGLOBIN. 8.3 g/dL (12.0-16.0); MEAN PLATELET VOLUME 10.4 fl (7.4-10.4); PLATELET 118 x1000/uL (130-400); RED BLOOD CELL COUNT 2.64 mill/uL (4.2-5.4); RED CELL DISTRIBUTION WIDTH 21.1 % (11.6-14.6)
[2025-02-03 20:13] LABS: CREATININE 3.4 mg/dL (0.6-1.0); UREA NITROGEN BLOOD 38.0 mg/dL (9-23)
[2025-02-03 20:15] LABS: PHOSPHORUS 2.5 mg/dL (2.5-4.9)
[2025-02-03 20:22] LABS: LYMPHOCYTES % MANUAL 11.0 % (20.0-60.0); MONOCYTES % MANUAL 5.0 % (2.0-8.0); NEUTROPHILS % MANUAL 84.0 % (45.0-75.0)
[2025-02-03 20:23] LABS: PLATELET ESTIMATE DECREASED
[2025-02-03] MEDS: IPRATROPIUM/ALBUTEROL 0.5-3(2.5)MG/3ML NEB HHN PRN (21:58)
[2025-02-03] MEDS: FUROSEMIDE 100MG/10ML VIAL IVP SCH (23:11)
[2025-02-03] MEDS: ALTEPLASE 2MG/VIAL ITC SCH (23:13)
[2025-02-04] VITALS (15 sets, daily range): BP systolic 88–139; BP diastolic 32–80; PULSE 66–118; RESP 17–22; TEMP 35.6–36.4; O2SAT 96–100
[2025-02-04] MEDS: DEXT 5%/0.9% NACL 1,000 ML IV SCH (00:10)
[2025-02-04 04:01] LABS: CREATININE 4.3 mg/dL (0.6-1.0); UREA NITROGEN BLOOD 34.0 mg/dL (9-23)
[2025-02-04 04:04] LABS: PHOSPHORUS 3.4 mg/dL (2.5-4.9)
[2025-02-04] MEDS: FAMOTIDINE 20MG TABLET PO SCH (08:07)
[2025-02-04] MEDS: SODIUM ZIRCONIUM CYCLOSILICATE 10GM/PACKET PO NR (08:30)
[2025-02-04 08:47] LABS: HEMATOCRIT. 24.5 % (36.0-48.0); HEMOGLOBIN. 7.9 g/dL (12.0-16.0); MEAN PLATELET VOLUME 10.4 fl (7.4-10.4); PLATELET 127 x1000/uL (130-400); RED BLOOD CELL COUNT 2.49 mill/uL (4.2-5.4); RED CELL DISTRIBUTION WIDTH 21.6 % (11.6-14.6)
[2025-02-04 09:17] LABS: INR 1.1
[2025-02-04] MEDS: MIDODRINE HCL 5MG TABLET PO PRN (11:17)
[2025-02-04] MEDS: VANCOMYCIN 500MG PREMIX 100 ML IV SCH (15:28)
[2025-02-04 21:42] LABS: LYMPHOCYTES % MANUAL 18.0 % (20.0-60.0); MONOCYTES % MANUAL 8.0 % (2.0-8.0); NEUTROPHILS % MANUAL 74.0 % (45.0-75.0); PLATELET ESTIMATE NORMAL
[2025-02-05] VITALS (14 sets, daily range): BP systolic 80–139; BP diastolic 40–52; PULSE 70–132; RESP 18–20; TEMP 35.66952–36.6; O2SAT 96–100
[2025-02-05 07:09] LABS: CREATININE 4.2 mg/dL (0.6-1.0)
[2025-02-05 07:10] LABS: UREA NITROGEN BLOOD 39.0 mg/dL (9-23)
[2025-02-05 07:12] LABS: PHOSPHORUS 3.9 mg/dL (2.5-4.9)
[2025-02-05] MEDS: SODIUM ZIRCONIUM CYCLOSILICATE 10GM/PACKET PO NR (08:03)
[2025-02-05] MEDS: SODIUM CHLORIDE 0.9% 250 ML IV ONE (09:43)
[2025-02-05 10:10] LABS: FECAL FAT NEUTRAL. Normal (.); FECAL FAT TOTAL. Normal (.)
[2025-02-06] VITALS: BP 104/89; PULSE 109; RESP 20; TEMP 36.3; O2SAT 99
[2025-02-06 04:00] VITALS: BP 98/41; PULSE 97; RESP 17; TEMP 36.3; O2SAT 100
[2025-02-06 08:00] VITALS: BP 102/43; PULSE 106; RESP 20; TEMP 36.4; O2SAT 95
[2025-02-06 11:09] LABS: BASOPHILS % 1.1 % (0.0-2.0); EOSINOPHILS % 0.2 % (0.0-5.0); HEMATOCRIT. 26.6 % (36.0-48.0); HEMOGLOBIN. 8.8 g/dL (12.0-16.0); LYMPHOCYTES % 12.5 % (20.0-50.0); MEAN PLATELET VOLUME 10.4 fl (7.4-10.4); MONOCYTES % 5.9 % (2.0-8.0); NEUTROPHILS % 80.3 % (40.0-76.0); PLATELET 171 x1000/uL (130-400); RED BLOOD CELL COUNT 2.70 mill/uL (4.2-5.4); RED CELL DISTRIBUTION WIDTH 22.0 % (11.6-14.6)
[2025-02-06 11:33] LABS: CREATININE 4.2 mg/dL (0.6-1.0); UREA NITROGEN BLOOD 50.0 mg/dL (9-23)
[2025-02-06 11:35] LABS: PHOSPHORUS 3.9 mg/dL (2.5-4.9)
[2025-02-06 12:00] VITALS: BP 122/51; PULSE 98; RESP 19; TEMP 36.6; O2SAT 98
[2025-02-06] MEDS: FUROSEMIDE 100MG/10ML VIAL IVP SCH (13:00)
[2025-02-06 16:00] VITALS: BP 120/52; PULSE 87; RESP 17; TEMP 36.4; O2SAT 100
[2025-02-06 20:00] VITALS: BP 140/79; PULSE 70; RESP 18; TEMP 36.4; O2SAT 99
[2025-02-07] VITALS (15 sets, daily range): BP systolic 63–128; BP diastolic 39–76; PULSE 79–146; RESP 17–20; TEMP 36.1–36.8; O2SAT 96–99
[2025-02-07 12:59] LABS: BASOPHILS % 0.8 % (0.0-2.0); EOSINOPHILS % 0.5 % (0.0-5.0); HEMATOCRIT. 22.2 % (36.0-48.0); LYMPHOCYTES % 15.5 % (20.0-50.0); MEAN PLATELET VOLUME 10.1 fl (7.4-10.4); MONOCYTES % 6.0 % (2.0-8.0); NEUTROPHILS % 77.2 % (40.0-76.0); PLATELET 138 x1000/uL (130-400); RED BLOOD CELL COUNT 2.25 mill/uL (4.2-5.4); RED CELL DISTRIBUTION WIDTH 22.9 % (11.6-14.6)
[2025-02-07 13:06] LABS: HEMOGLOBIN. 7.0 g/dL (12.0-16.0)
[2025-02-07 13:16] LABS: UREA NITROGEN BLOOD 31.0 mg/dL (9-23)
[2025-02-07 13:18] LABS: PHOSPHORUS 2.6 mg/dL (2.5-4.9)
[2025-02-07 13:19] LABS: CREATININE 2.7 mg/dL (0.6-1.0)
[2025-02-07] MEDS ORDERED: LIDOCAINE HCL 1% 10 MG/ML 10ML VIAL ONE (13:33)
[2025-02-08] VITALS (20 sets, daily range): BP systolic 86–152; BP diastolic 33–103; PULSE 64–151; RESP 16–19; TEMP 35.89176–36.7; O2SAT 97–100
[2025-02-08] MEDS: METOPROLOL TARTRATE 25MG TABLET PO NR (03:21)
[2025-02-08 06:51] LABS: BASOPHILS % 0.6 % (0.0-2.0); EOSINOPHILS % 0.4 % (0.0-5.0); HEMATOCRIT. 31.6 % (36.0-48.0); HEMOGLOBIN. 10.5 g/dL (12.0-16.0); LYMPHOCYTES % 20.0 % (20.0-50.0); MEAN PLATELET VOLUME 10.5 fl (7.4-10.4); MONOCYTES % 7.6 % (2.0-8.0); NEUTROPHILS % 71.4 % (40.0-76.0); PLATELET 130 x1000/uL (130-400); RED BLOOD CELL COUNT 3.31 mill/uL (4.2-5.4); RED CELL DISTRIBUTION WIDTH 22.7 % (11.6-14.6)
[2025-02-08 07:11] LABS: UREA NITROGEN BLOOD 57 mg/dL (9-23)
[2025-02-08 07:13] LABS: PHOSPHORUS 5.4 mg/dL (2.5-4.9)
[2025-02-08 07:46] LABS: ADD RBC MORPHOLOGY NO
[2025-02-08 08:43] LABS: CREATININE 4.6 mg/dL (0.6-1.0)
[2025-02-08] MEDS ORDERED: LIDOCAINE HCL 1% 10 MG/ML 10ML VIAL ONE ×2 (10:20→10:27)
[2025-02-08] MEDS ORDERED: HEPARIN 1000 UNITS/ML 10ML ONE (10:27)
[2025-02-08] MEDS: METOPROLOL TARTRATE 5MG/5ML VIAL IV NR (17:05)
[2025-02-09] VITALS (12 sets, daily range): BP systolic 99–134; BP diastolic 38–90; PULSE 63–137; RESP 13–22; TEMP 35.4–37.1; O2SAT 94–98
[2025-02-09] MEDS: METOPROLOL TARTRATE 25MG TABLET PO NR (03:12)
[2025-02-09 11:28] LABS: BASOPHILS % 0.6 % (0.0-2.0); EOSINOPHILS % 0.3 % (0.0-5.0); HEMATOCRIT. 32.5 % (36.0-48.0); HEMOGLOBIN. 10.6 g/dL (12.0-16.0); LYMPHOCYTES % 14.8 % (20.0-50.0); MEAN PLATELET VOLUME 10.2 fl (7.4-10.4); MONOCYTES % 8.6 % (2.0-8.0); NEUTROPHILS % 75.7 % (40.0-76.0); PLATELET 145 x1000/uL (130-400); RED BLOOD CELL COUNT 3.47 mill/uL (4.2-5.4); RED CELL DISTRIBUTION WIDTH 22.5 % (11.6-14.6)
[2025-02-09 11:36] LABS: INR 1.1
[2025-02-09 11:43] LABS: CREATININE 3.4 mg/dL (0.6-1.0)
[2025-02-09 11:44] LABS: UREA NITROGEN BLOOD 34 mg/dL (9-23)
[2025-02-09 11:46] LABS: PHOSPHORUS 3.9 mg/dL (2.5-4.9)
[2025-02-09] MEDS ORDERED: DEXTROSE 50% WATER 50ML SYRINGE IV PRN (17:45)
[2025-02-09] MEDS: INSULIN LISPRO 100 UNITS/ML SUBCUT SCH (18:03)
[2025-02-09] MEDS: BLOOD SUGAR DIAGNOSTIC STRIP TEST SCH (21:00)
[2025-02-09] MEDS ORDERED: BLOOD SUGAR DIAGNOSTIC STRIP TEST SCH (21:00)
[2025-02-10] VITALS (13 sets, daily range): BP systolic 99–160; BP diastolic 25–170; PULSE 63–111; RESP 12–20; TEMP 36.44736–36.7; O2SAT 93–100
[2025-02-10 11:55] LABS: CREATININE 3.3 mg/dL (0.6-1.0); UREA NITROGEN BLOOD 30.0 mg/dL (9-23)
[2025-02-10 11:58] LABS: PHOSPHORUS 3.7 mg/dL (2.5-4.9)
[2025-02-10 12:00] LABS: BASOPHILS % 0.7 % (0.0-2.0); EOSINOPHILS % 0.7 % (0.0-5.0); HEMATOCRIT. 31.0 % (36.0-48.0); HEMOGLOBIN. 9.7 g/dL (12.0-16.0); LYMPHOCYTES % 17.2 % (20.0-50.0); MEAN PLATELET VOLUME 10.3 fl (7.4-10.4); MONOCYTES % 4.3 % (2.0-8.0); NEUTROPHILS % 77.1 % (40.0-76.0); PLATELET 105 x1000/uL (130-400); RED BLOOD CELL COUNT 3.21 mill/uL (4.2-5.4); RED CELL DISTRIBUTION WIDTH 24.1 % (11.6-14.6)
[2025-02-11] VITALS (47 sets, daily range): BP systolic 53–163; BP diastolic 22–137; PULSE 62–147; RESP 11–28; TEMP 36.3–36.9; O2SAT 93–100
[2025-02-11 07:49] LABS: CREATININE 2.8 mg/dL (0.6-1.0); UREA NITROGEN BLOOD 18 mg/dL (9-23)
[2025-02-11 07:52] LABS: PHOSPHORUS 4.0 mg/dL (2.5-4.9)
[2025-02-11] MEDS: DIGOXIN 500MCG/2ML AMP IV NR ×2 (08:54→13:00)
[2025-02-11] MEDS ORDERED: SODIUM CHLORIDE 0.9% 500 ML IV NR (09:00)
[2025-02-11 09:56] LABS: BG BASE EXCESS -4.4 mmol/L (-2.0-3.0); BG CARBOXYHEMOGLOBIN 0.7 % (0.5-1.5); BG DEOXYHEMOGLOBIN 1.6 % (0.0-5.0); BG FLOW(L/min) 15.00 L/min; BG FRACTION INSPIRED OXYGEN 100; BG HCO3 ACT 16.8 mmol/L (21.0-28.0); BG METHEMOGLOBIN 0.3 % (0.5-1.5); BG OXYGEN SATURATION 98.4 % (94.0-98.0); BG OXYHEMOGLOBIN 97.4 % (94.0-98.0); BG PCO2 20.9 mmHg (32.0-45.0); BG PH 7.524 (7.350-7.450); BG PO2 345.3 mmHg (83.0-108.0); BG SAMPLE SITE LEFT BRACHIAL; BG TOTAL HEMOGLOBIN 10.3 g/dL (12.0-16.0); BG VENT MODE MASK - NRB
[2025-02-11 10:55] LABS: HEMATOCRIT. 31.8 % (36.0-48.0); HEMOGLOBIN. 10.0 g/dL (12.0-16.0); MEAN PLATELET VOLUME 10.0 fl (7.4-10.4); PLATELET 62 x1000/uL (130-400); RED BLOOD CELL COUNT 3.19 mill/uL (4.2-5.4); RED CELL DISTRIBUTION WIDTH 24.7 % (11.6-14.6)
[2025-02-11 11:05] LABS: INR 1.2
[2025-02-11 11:10] LABS: CREATININE 2.9 mg/dL (0.6-1.0)
[2025-02-11 11:11] LABS: TRIGLYCERIDE 139 mg/dL (0-150); UREA NITROGEN BLOOD 25 mg/dL (9-23)
[2025-02-11 11:12] LABS: LDL CHOLESTEROL 34 mg/dL (5-100)
[2025-02-11] MEDS: DEXT 5%/0.9% NACL 1,000 ML IV SCH (12:08)
[2025-02-11] MEDS ORDERED: IOHEXOL-350 100 ML BOTTLE ONE (12:52)
[2025-02-11] MEDS: DIGOXIN 500MCG/2ML AMP IV SCH (12:58)
[2025-02-11] MEDS: DEXTROSE 50% WATER 50ML SYRINGE IV PRN (13:36)
[2025-02-11] MEDS ORDERED: VASOPRESSIN 20 UNIT in SODIUM CHLORIDE 0.9% 99 ML IV PRN (14:15)
[2025-02-11] MEDS: LIDOCAINE 5% PATCH TOP SCH (14:51)
[2025-02-11] MEDS: LACTATED RINGERS 500 ML IV SCH (14:54)
[2025-02-11] MEDS: VASOPRESSIN 20 UNIT in SODIUM CHLORIDE 0.9% 99 ML IV PRN (14:54)
[2025-02-11] MEDS: PHENYLEPHRINE 50MG/250ML PMX 250 ML IV PRN (14:55)
[2025-02-11] MEDS: NOREPINEPHRINE 8MG/250ML PMX 250 ML IV PRN (15:36)
[2025-02-11 16:13] LABS: CLARITY URINE TURBID (CLEAR); COLOR URINE ORANGE (YELLOW); GLUCOSE URINE NEGATIVE (NEGATIVE); KETONES URINE NEGATIVE (NEGATIVE); LEUKOCYTE ESTERASE URINE 3+ (NEGATIVE); NITRITE URINE NEGATIVE (NEGATIVE); OCCULT BLOOD URINE 3+ (NEGATIVE); PH URINE 6.0 (4.5-8.0); PROTEIN URINE 4+ (NEGATIVE); SPECIFIC GRAVITY URINE 1.024 (1.005-1.030); UROBILINOGEN URINE 0.2 E.U./dL (0.2-1.0)
[2025-02-11] MEDS ORDERED: MORPHINE SULFATE 2 MG/ML INJ (NOT FOR IM USE) IV PRN (17:00)
[2025-02-11 17:02] LABS: BACTERIA URINE 4+; RBC URINE TNTC /hpf (0-2); SQUAMOUS EPITHELIAL CELL URINE 1+ /lpf (RARE/1+); WBC URINE TNTC /hpf (0-2)
[2025-02-11] MEDS: KETOROLAC 15MG/ML VIAL IV PRN (17:17)
[2025-02-11] MEDS: CEFEPIME 1GM/50ML 50 ML IV SCH (18:46)
[2025-02-11] MEDS: PHENYLEPHRINE 100 MG in DEXT 5% WATER 240 ML IV PRN (19:51)
[2025-02-11 21:40] LABS: BAND% 22.0 % (1.0-6.0); LYMPHOCYTES % MANUAL 7.0 % (20.0-60.0); MONOCYTES % MANUAL 2.0 % (2.0-8.0); NEUTROPHILS % MANUAL 69.0 % (45.0-75.0); NUCLEATED RED BLOOD CELLS 2 /100 WBC; PLATELET ESTIMATE DECREASED
[2025-02-12] VITALS (93 sets, daily range): BP systolic 54–191; BP diastolic 12–91; PULSE 0–269; RESP 20–43; TEMP 36.8–37.2; O2SAT 98–100
[2025-02-12 07:43] LABS: BASOPHILS % 0.2 % (0.0-2.0); EOSINOPHILS % 2.8 % (0.0-5.0); HEMATOCRIT. 37.0 % (36.0-48.0); HEMOGLOBIN. 11.5 g/dL (12.0-16.0); LYMPHOCYTES % 10.5 % (20.0-50.0); MEAN PLATELET VOLUME 11.7 fl (7.4-10.4); MONOCYTES % 4.0 % (2.0-8.0); NEUTROPHILS % 82.5 % (40.0-76.0); PLATELET 72 x1000/uL (130-400); RED BLOOD CELL COUNT 3.66 mill/uL (4.2-5.4); RED CELL DISTRIBUTION WIDTH 24.5 % (11.6-14.6)
[2025-02-12 08:06] LABS: ADD RBC MORPHOLOGY NO
[2025-02-12 08:15] LABS: UREA NITROGEN BLOOD 30 mg/dL (9-23)
[2025-02-12 08:18] LABS: CREATININE 3.2 mg/dL (0.6-1.0)
[2025-02-12 08:20] LABS: ASPARTATE AMINOTRANSFERASE 32 IU/L (<34); BILIRUBIN DIRECT 0.3 mg/dL (<=3.0); BILIRUBIN TOTAL 0.4 mg/dL (0.1-1.0); PHOSPHORUS 4.5 mg/dL (2.5-4.9); PROTEIN TOTAL 4.6 g/dL (6.0-8.3); TROPONIN I HIGH SENSITIVITY 1189 ng/L (3.0-34)
[2025-02-12 10:04] LABS: BG BASE EXCESS -10.4 mmol/L (-2.0-3.0); BG CARBOXYHEMOGLOBIN 1.3 % (0.5-1.5); BG DEOXYHEMOGLOBIN 3.6 % (0.0-5.0); BG FRACTION INSPIRED OXYGEN 28; BG HCO3 ACT 12.6 mmol/L (21.0-28.0); BG METHEMOGLOBIN 0.3 % (0.5-1.5); BG OXYGEN SATURATION 96.3 % (94.0-98.0); BG OXYHEMOGLOBIN 94.8 % (94.0-98.0); BG PCO2 21.6 mmHg (32.0-45.0); BG PH 7.384 (7.350-7.450); BG PO2 95.4 mmHg (83.0-108.0); BG SAMPLE SITE RIGHT RADIAL; BG TOTAL HEMOGLOBIN 12.5 g/dL (12.0-16.0); BG VENT MODE NASAL CANNULA
[2025-02-12] MEDS: VANCOMYCIN 1GM PMX (XELLIA) 200 ML IV NR (10:26)
[2025-02-12] MEDS: NOREPINEPHRINE 32 MG in DEXT 5% WATER 218 ML IV PRN (11:13)
[2025-02-12] MEDS: LACTATED RINGERS 500 ML IV ONE (11:13)
[2025-02-12] MEDS ORDERED: LACTULOSE ENEMA 1,000ML BOTTLE PR SCH (12:00)
[2025-02-12] MEDS ORDERED: LACTULOSE ENEMA 1,000ML BOTTLE PR PRN (12:15)
[2025-02-12] MEDS: LACTULOSE 20G/30ML UDC PO SCH (13:43)
[2025-02-12] MEDS: HYDROCORTISONE SOD SUCCINATE 100 MG/2 ML VIAL IV SCH (13:44)
[2025-02-12] MEDS: CALCITRIOL 1 MCG/ML ORAL SYR PEG SCH (14:38)
[2025-02-12] MEDS ORDERED: DIGOXIN 125MCG TABLET PO SCH (17:00)
[2025-02-12] MEDS: DIGOXIN 500MCG/2ML AMP IV SCH (17:14)
[2025-02-12] MEDS: SODIUM CHLORIDE 0.9% 500 ML IV ONE (19:10)
[2025-02-13] MEDS ORDERED: CEFEPIME 1GM/50ML 50 ML IV SCH (06:00)
[2025-02-13] MEDS ORDERED: PREDNISONE 10MG TABLET PO SCH (09:00)
== END 2025-02-13 00:25 | DRG 871 ==
LOC: ER 11:10 → EDBEDREQSVC 13:19 → EDBEDREQTM 13:19 → EDBEDREQ 13:19 → ENRESERV 19:10 → 5EST 21:24 → CVICU 01-25 14:15 → 5EST 01-27 18:12 → 6WST 02-03 05:00 → MICUNO 02-11 10:13
PROVIDERS: ADMIT Internal Medicine; ATTEND Internal Medicine
PROC: 5A0935A Assistance with Respiratory Ventilation, Less than 24 Consecutive Hours, High Flow/Velocity Cannula (ICD-10-PCS; 2025-01-24)
PROC: 05HY33Z Insertion of Infusion Device into Upper Vein, Percutaneous Approach (ICD-10-PCS; 2025-01-25)
PROC: B54NZZA Ultrasonography of Left Upper Extremity Veins, Guidance (ICD-10-PCS; 2025-01-25)
PROC: 5A1D70Z Performance of Urinary Filtration, Intermittent, Less than 6 Hours Per Day (ICD-10-PCS; 2025-01-26)
PROC: 5A1D70Z Performance of Urinary Filtration, Intermittent, Less than 6 Hours Per Day (ICD-10-PCS; 2025-01-28)
PROC: 5A1D70Z Performance of Urinary Filtration, Intermittent, Less than 6 Hours Per Day (ICD-10-PCS; 2025-01-31)
PROC: 5A1D70Z Performance of Urinary Filtration, Intermittent, Less than 6 Hours Per Day (ICD-10-PCS; 2025-02-02)
PROC: 5A1D70Z Performance of Urinary Filtration, Intermittent, Less than 6 Hours Per Day (ICD-10-PCS; 2025-02-03)
PROC: 5A1D70Z Performance of Urinary Filtration, Intermittent, Less than 6 Hours Per Day (ICD-10-PCS; 2025-02-04)
PROC: 5A1D70Z Performance of Urinary Filtration, Intermittent, Less than 6 Hours Per Day (ICD-10-PCS; 2025-02-05)
PROC: 05HY33Z Insertion of Infusion Device into Upper Vein, Percutaneous Approach (ICD-10-PCS; 2025-02-07)
PROC: B54MZZA Ultrasonography of Right Upper Extremity Veins, Guidance (ICD-10-PCS; 2025-02-07)
PROC: 5A1D70Z Performance of Urinary Filtration, Intermittent, Less than 6 Hours Per Day (ICD-10-PCS; 2025-02-07)
PROC: 0JPTXXZ Removal of Tunneled Vascular Access Device from Trunk Subcutaneous Tissue and Fascia, External Approach (ICD-10-PCS; 2025-02-08)
PROC: 30233N1 Transfusion of Nonautologous Red Blood Cells into Peripheral Vein, Percutaneous Approach (ICD-10-PCS; 2025-02-08)
PROC: 5A1D70Z Performance of Urinary Filtration, Intermittent, Less than 6 Hours Per Day (ICD-10-PCS; 2025-02-08)
PROC: 0JH63XZ Insertion of Tunneled Vascular Access Device into Chest Subcutaneous Tissue and Fascia, Percutaneous Approach (ICD-10-PCS; 2025-02-08)
PROC: 02H633Z Insertion of Infusion Device into Right Atrium, Percutaneous Approach (ICD-10-PCS; 2025-02-08)
PROC: B5181ZA Fluoroscopy of Superior Vena Cava using Low Osmolar Contrast, Guidance (ICD-10-PCS; 2025-02-08)
PROC: 5A1D70Z Performance of Urinary Filtration, Intermittent, Less than 6 Hours Per Day (ICD-10-PCS; 2025-02-09)
PROC: 5A1D70Z Performance of Urinary Filtration, Intermittent, Less than 6 Hours Per Day (ICD-10-PCS; 2025-02-10)
PROC: 5A12012 Performance of Cardiac Output, Single, Manual (ICD-10-PCS; principal; 2025-02-11)
PROC: 0BH17EZ Insertion of Endotracheal Airway into Trachea, Via Natural or Artificial Opening (ICD-10-PCS; 2025-02-12)
DX: A41.9 Sepsis, unspecified organism (principal); G82.50 Quadriplegia, unspecified; I21.4 Non-ST elevation (NSTEMI) myocardial infarction; N18.6 End stage renal disease; R65.21 Severe sepsis with septic shock; G93.41 Metabolic encephalopathy; I13.2 Hypertensive heart and chronic kidney disease with heart failure and with stage 5 chronic kidney disease, or end stage renal disease; D69.6 Thrombocytopenia, unspecified; R13.10 Dysphagia, unspecified; N39.0 Urinary tract infection, site not specified; Z99.2 Dependence on renal dialysis; I46.9 Cardiac arrest, cause unspecified; E11.22 Type 2 diabetes mellitus with diabetic chronic kidney disease; D50.9 Iron deficiency anemia, unspecified; E03.9 Hypothyroidism, unspecified; M32.9 Systemic lupus erythematosus, unspecified; I35.1 Nonrheumatic aortic (valve) insufficiency; Z95.828 Presence of other vascular implants and grafts; E87.20 Acidosis, unspecified; I48.20 Chronic atrial fibrillation, unspecified; I50.22 Chronic systolic (congestive) heart failure; I82.C21 Chronic embolism and thrombosis of right internal jugular vein; I82.722 Chronic embolism and thrombosis of deep veins of left upper extremity; E72.20 Disorder of urea cycle metabolism, unspecified; E87.1 Hypo-osmolality and hyponatremia; E83.51 Hypocalcemia; S41.111A Laceration without foreign body of right upper arm, initial encounter; S41.112A Laceration without foreign body of left upper arm, initial encounter; K64.9 Unspecified hemorrhoids; E83.39 Other disorders of phosphorus metabolism; R26.9 Unspecified abnormalities of gait and mobility; R53.81 Other malaise; D63.8 Anemia in other chronic diseases classified elsewhere; R58 Hemorrhage, not elsewhere classified; K57.30 Diverticulosis of large intestine without perforation or abscess without bleeding; B39.9 Histoplasmosis, unspecified; E78.00 Pure hypercholesterolemia, unspecified; I25.10 Atherosclerotic heart disease of native coronary artery without angina pectoris; Z79.624 Long term (current) use of inhibitors of nucleotide synthesis; Z79.82 Long term (current) use of aspirin; Z86.73 Personal history of transient ischemic attack (TIA), and cerebral infarction without residual deficits; Z88.0 Allergy status to penicillin; Z88.5 Allergy status to narcotic agent; Z88.6 Allergy status to analgesic agent; X58.XXXA Exposure to other specified factors, initial encounter; Y93.89 Activity, other specified; Y92.89 Other specified places as the place of occurrence of the external cause; Y99.8 Other external cause status
CPT/HCPCS: 31500; 36415; 36573; 36581; 36600; 70496; 70498; 71045; 74176; 80048; 80061; 80076; 80162; 80197; 80202; 81003; 82140; 82270; 82330; 82375; 82533; 82550; 82607; 82705; 82728; 82746; 82805; 82962; 83036; 83540; 83550; 83605; 83735; 83970; 84100; 84134; 84145; 84439; 84443; 84481; 84484; 85025; 85044; 85651; 86705; 86709; 86850; 86900; 86920; 87015; 87045; 87077; 87186; 87340; 87427; 87449; 90935; 92610; 92950; 93005; 93306; 93923; 93970; 94640; 94664; 97162; 97166; 97530; 97535; 99291; A4606; C1725; J0612; J0692; J0885; J1160; J1644; J1720; J1815; J1885; J1938; J2003; J2371; J2405; J2470; J2543; J2997; J3373; J3475; J3490; J7042; J7050; J7060; J7070; J7507; J7512; P9016; P9047; Q9967